=== PATIENT | female | born 1935 | race Caucasian/White ===

== ENCOUNTER 2018-11-27 12:05 | Inpatient (IN) | payer MEDICARE ==
--- NOTE | 2018-11-27 12:16 | Event Note ---
ED Screening Note Date of service: 11/27/18 Time: 12:11 ED Screening Note: This is a 83 y.o. F. that presents to the ER with dyspena for 4 hours. Patient daughter states she is very sleepy and tired since awaking this morning. PMH HTN, DM2, HLD, & CKD on dialysis Fri, , & Friday This initial assessment/diagnostic orders/clinical plan/treatment(s) is/are subject to change based on patients health status, clinical progression and re- assessment by fellow clinical providers in the ED. Further treatment and workup at subsequent clinical providers discretion. Patient/guardian urged not to elope from the ED as their condition may be serious if not clinically assessed and managed. Initial orders include: Labs, EKG, and CXR
--- NOTE | 2018-11-27 13:16 | XRay Report ---
CHEST 1 VIEW INDICATION / CLINICAL INFORMATION: SOB. COMPARISON: None available. FINDINGS: SUPPORT DEVICES: None. HEART / MEDIASTINUM: There is enlargement of the cardiac silhouette. Atherosclerotic calcifications a re noted in the aorta LUNGS / PLEURA: There is perihilar interstitial disease and basilar interstitial disease. Patchy airs pace opacities noted in both lung bases left greater than right. There is a small amount of pleural f luid bilaterally.. No pneumothorax. ADDITIONAL FINDINGS: No significant additional findings. IMPRESSION: 1. Bilateral interstitial and airspace opacities are noted. There are small bilateral pleural effusio ns left greater than right. The appearance is most suggestive of pulmonary edema and congestive hear t failure. Signer Name: Geoffrey Redmond MD Signed: 11/27/2018 1:11 PM Workstation Name: [id number]
[2018-11-27 13:53] LABS: Basophils # (Auto) 0.1 K/mm3 (0.0-0.1); Basophils % (Auto) 1.8 % (0.0-1.8); Eosinophils # (Auto) 0.2 K/mm3 (0.0-0.4); Eosinophils % (Auto) 4.7 % (0.0-4.3); Hematocrit 37.1 % (30.3-42.9); Hemoglobin 11.9 gm/dl (10.1-14.3); Lymphocytes % (Auto) 26.3 % (13.4-35.0); Mean Corpuscular HGB Conc 32 % (30-34); Mean Corpuscular Volume 95 fl (79-97); Monocytes # (Auto) 0.5 K/mm3 (0.0-0.8); Monocytes % (Auto) 13.5 % (0.0-7.3); Platelet Count 230 K/mm3 (140-440); Red Blood Count 3.92 M/mm3 (3.65-5.03); Red Cell Distribution Width 15.4 % (13.2-15.2)
[2018-11-27 14:20] LABS: Calcium 8.8 mg/dL (8.4-10.2)
[2018-11-27] MEDS ORDERED: FUROSEMIDE 40 MG/4 ML INJ IV ONE (14:33)
[2018-11-27] MEDS ORDERED: NITROGLYCERIN 2% OINT 1 GM TP ONE (14:33)
[2018-11-27] MEDS ORDERED: MORPHINE 2 MG/1 ML INJ IV ONE (14:34)
[2018-11-27] MEDS ORDERED: ONDANSETRON 4 MG/2 ML INJ IV ONE (14:34)
[2018-11-27 14:49] LABS: INR 1.11 (0.87-1.13)
[2018-11-27] MEDS ORDERED: HEPARIN 10,000 UNITS/10 ML VIAL IV ONE (15:03)
--- NOTE | 2018-11-27 15:23 | Emergency Department Report ---
ED Chest Pain HPI - General Chief Complaint: Dyspnea/Respdistress Stated Complaint: LUCIA Time Seen by Provider: 11/27/18 12:10 Source: family Mode of arrival: Wheelchair Limitations: Language Barrier - History of Present Illness Initial Comments: He 3-year-old female Macanese speaking. We have obtained a history in Macanese. She is not very talkative and tends to keep her eyes closed. However, she will respond to questions in her [place] language. She is not much missed spontaneous historian. However on questioning she apparently has had chest pain for at least 2 days. She states that it does radiate down her left arm. The chest pain is anterior in nature. She has had shortness of breath. 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 She does report a previous history of heart attack. She states she is treated here. However records do not indicate that she was here under this name as a patient with a cardiac event. MD Complaint: chest pain -: days(s) Onset: during rest Pain Location: substernal Pain Radiation: LUE Severity: moderate Quality: other (poorly characterized) Consistency: constant Improves With: nothing Worsens With: nothing re: dyspnea Other Symptoms: denies: cough, fever, syncope, rash, acid taste in mouth, leg swelling, palpitations, burping Treatments Prior to Arrival: other (unknown) Aspirin use within the Past 7 Days: (0) No (unknown) - Related Data Allergies Allergy/AdvReac Type Severity Reaction Status Date / Time No Known Allergies Allergy Unverified 11/27/18 12:08 Heart Score - HEART Score History: Highly suspicious EKG: Significant ST-depression Age: > 65 Risk factors: > 3 risk factors or hx of atherosclerotic disease Troponin: 1-3x normal limit HEART Score: 9 - Critical Actions Critical Actions: >7 pts:50-65% risk of adverse cardiac event. Early invasive measures ED Review of Systems ROS: Stated complaint: LUCIA Other details as noted in HPI Constitutional: denies: chills, fever Eyes: denies: eye pain, eye discharge, vision change ENT: denies: ear pain, throat pain Respiratory: shortness of breath. denies: cough, wheezing Cardiovascular: as per HPI, chest pain Endocrine: no symptoms reported Gastrointestinal: denies: abdominal pain, nausea, diarrhea Genitourinary: denies: urgency, dysuria, discharge Musculoskeletal: denies: back pain, joint swelling, arthralgia Skin: denies: rash, lesions Neurological: denies: headache, weakness, paresthesias Psychiatric: denies: anxiety, depression Hematological/Lymphatic: denies: easy bleeding, easy bruising ED Past Medical Hx - Past Medical History Previous Medical History?: Yes Hx Hypertension: Yes Additional medical history: hypothyroidism - Social History Smoking Status: Never Smoker Substance Use Type: None ED Physical Exam - General Limitations: Language Barrier General appearance: in no apparent distress, lethargic - Head Head exam: Present: atraumatic, normocephalic - Eye Eye exam: Present: normal appearance. Absent: scleral icterus - ENT ENT exam: Present: mucous membranes moist - Neck Neck exam: Present: normal inspection. Absent: tenderness, meningismus - Respiratory Respiratory exam: Present: normal lung sounds bilaterally. Absent: respiratory distress - Cardiovascular Cardiovascular Exam: Present: regular rate, normal rhythm. Absent: systolic murmur, diastolic murmur, rubs, gallop - GI/Abdominal GI/Abdominal exam: Present: soft, normal bowel sounds. Absent: distended, tenderness, guarding, rebound - Extremities Exam Extremities exam: Present: normal inspection - Back Exam Back exam: Present: normal inspection - Neurological Exam Neurological exam: Present: alert, oriented X3, CN II-XII intact. Absent: motor sensory deficit (neuro is grossly intact as testable) - Psychiatric Psychiatric exam: Present: depressed (perhaps), flat affect - Skin Skin exam: Present: warm, dry, intact, normal color. Absent: rash ED Course Vital Signs 11/27/18 12:11 Temperature 97.6 F Pulse Rate 78 Respiratory 16 Rate Blood Pressure 196/116 [Left] O2 Sat by Pulse 96 Oximetry - Reevaluation(s) Reevaluation #1: She given labetalol, nitrates, aspirin, a test dose of Lasix to see if she will diuresis at all. However creatinine is 3.7 and this is probably unlikely. She is placed on heparin protocol. The case is discussed with Dr. Goode who agreed to see the patient in consult. He does agree with heparin and admission to the hospitalist service. Patient is not a candidate for acute intervention. 11/27/18 15:24 Reevaluation #2: I find no prior creatinine found on review of our system. 11/27/18 15:26 Reevaluation #3: Suspected that the patient has her name is reversed because DO is a Macanese last name. Looking up the patient with the last name of Mehdi reveals recent admission: Hospitalization Condition: Fair Hospital course: Patient is a 83 year old vietnamise speaking female with hx of ESRD, HTN, ARTHRITIS, DM, presents to the ED with complaints of shortness of breath per family. No one is availbale at this time for information and patient is lethargic unable to use the translation line. Per Chart review, patient has been having worsening shortness of breath for about 3 hours prior to presentation, she is complaint with dialysis , diet and fluid intake with the last dialysis being on Friday and was full treatment. Prior visit notates that cardiology in the past had recommended conservative cardiac therapy following negative work up in the past. er most recent cardiac evaluation was done in January 2018. She underwent Persantine stress test that did not show any evidence of reversible ischemia. Normal LV systolic function. Ejection fraction 55% seen on echo. She has also in the past been treated for colitis and normal Esophagram by GI Family made the patient DNR in the ED. --Acute on Chronic Respiratory failure: secondary to Volume overload Patient received hemodialysis yesterday mild improvement of symptoms --ESRD on HD. Hemodialysis per schedule TTS General Clerk following --HTN; moderate control, continue current antihypertensives When necessary hydralazine --Nonspecific elevation of troponins; probably secondary to ESRD 2 non-ST elevation [place] --2DM ; Accu-Chek sliding scale coverage and ADA diet and insulin --H/O Hypothroidisim; continue Synthroid --Dyslipidemia; continue lipid-lowering medications --Severe malnutrition; BMI 17.6 Nutrition supplements/nutrition consult and supportive care --DO NOT RESUSCITATE status 11/27/18 15:36 Reevaluation #4: Discussed with care management specialist. Patient's last dialysis was yesterday. Dr. Blackwood is coming to see patient. 11/27/18 15:41 WAN score - Wan Score Age > 65: (1) Yes Aspirin use within the Past 7 Days: (0) No (uncertain) 3 or more CAD Risk Factors: (1) Yes (uncertain) 2 or more Angina events in past 24 hrs: (1) Yes Known CAD with more than 50% Stenosis: (1) Yes (likely) Elevated Cardiac Markers: (1) Yes ST Deviation Greater than 0.5mm: (1) Yes WAN Score: 6 ED Medical Decision Making - Lab Data Result diagrams: 11/27/18 12:47 11/27/18 12:53 Laboratory Results - last 24 hr 11/27/18 11/27/18 11/27/18 12:47 12:53 12:53 WBC 3.9 L RBC 3.92 Hgb 11.9 Hct 37.1 MCV 95 MCH 30 MCHC 32 RDW 15.4 H Plt Count 230 Lymph % (Auto) 26.3 [place] % (Auto) 13.5 H Eos % (Auto) 4.7 H Baso % (Auto) 1.8 Lymph # 1.0 L [place] # 0.5 Eos # 0.2 Baso # 0.1 Seg Neutrophils % 53.7 Seg Neutrophils # 2.1 PT INR APTT Sodium 140 Potassium 4.5 Chloride 94.4 L Carbon Dioxide 30 Anion Gap 20 BUN 48 H Creatinine 3.7 H Estimated GFR 12 BUN/Creatinine Ratio 13 Glucose 94 Calcium 8.8 Total Bilirubin 0.50 AST 16 ALT 6 L Alkaline Phosphatase 70 Troponin T 0.669 H* Total Protein 7.5 Albumin 4.0 Albumin/Globulin Ratio 1.1 11/27/18 14:34 WBC RBC Hgb Hct MCV MCH MCHC RDW Plt Count Lymph % (Auto) [place] % (Auto) Eos % (Auto) Baso % (Auto) Lymph # [place] # Eos # Baso # Seg Neutrophils % Seg Neutrophils # PT 14.0 INR 1.11 APTT 34.0 Sodium Potassium Chloride Carbon Dioxide Anion Gap BUN Creatinine Estimated GFR BUN/Creatinine Ratio Glucose Calcium Total Bilirubin AST ALT Alkaline Phosphatase Troponin T Total Protein Albumin Albumin/Globulin Ratio - EKG Data -: EKG Interpreted by [place] EKG shows normal: sinus rhythm Rate: normal - EKG Data Interpretation: other (EKG shows normal sinus rhythm. There are Q waves present in the Joy through V4. There is J-point elevation in these leads with biphasic T waves EKG is consistent with prior anterior infarct non-acute.) - Radiology Data Radiology results: report reviewed (cardiomegaly and pulmonary edema), image reviewed Critical Care Time: Yes Critical care time in (mins) excluding proc time.: 90 Critical care attestation.: If time is entered above; I have spent that time in minutes in the direct care of this critically ill patient, excluding procedure time. ED Disposition Clinical Impression: Acute coronary syndrome, ESRD (end stage renal disease) on dialysis Pulmonary edema Qualifiers: Chronicity: acute Qualified Code(s): J81.0 - Acute pulmonary edema Disposition: OP ADMIT IP TO THIS HOSP Is pt being admited?: Yes Does the pt Need Aspirin: Yes Condition: Stable Instructions: Pulmonary Edema (ED) Referrals: PRIMARY CAREMD [Primary Care Provider] - 3-5 Days Time of Disposition: 15:43
[2018-11-27] MEDS ORDERED: ASPIRIN 81 MG TAB CHEW PO ONE (15:43)
[2018-11-27] MEDS ORDERED: HEPARIN/ 0.45% NACL DRIP 25,000 UNIT/500 ML BAG IV SCH (16:00)
[2018-11-27 16:04] LABS: Chol/HDL Ratio 4.01 %; HDL Cholesterol 51 mg/dL (40-59); LDL Cholesterol,Direct 145 mg/dL (50-130)
[2018-11-27 16:10] LABS: Hematocrit 35.4 % (30.3-42.9); Hemoglobin 11.1 gm/dl (10.1-14.3)
[2018-11-27] MEDS ORDERED: SODIUM CHLORIDE 0.9% 100 ML IV PRN (16:33)
--- NOTE | 2018-11-27 16:33 | Consultation ---
History of Present Illness - Reason for Consult Consult date: 11/27/18 - History of Present Illness The patient is an 83 YO female who is well known to our service with history significant for DM type 2, Hypertension, ESRD on HD (TTS), Hypothyroidism and Anemia who presented to [facility] ED with complaints of feeling tired and sob since today morning. Patient only speaks Kinyarwanda and history was obtained from her daughter at the bedside. Per daughter patient has been c/o tiredness and sob si nce this morning. She was last dialyzed yesterday. Per daughter no h/o N, V, D, CP, diaphoresis, cough, hemoptysis, dyspnea, headache, fever or chills. CXR showed pulmonary edema. Nephrology was consulted for ESRD management. Medications and Allergies Allergies Allergy/AdvReac Type Severity Reaction Status Date / Time No Known Allergies Allergy Unverified 11/27/18 12:08 Active Meds: Active Medications Heparin Sodium/Sodium Chloride (Heparin/ 0.45% Nacl-25,000 Unit/500 Ml) 25,000 unit in 500 mls @ 16 mls/hr IV TITRATE HIRAM; Protocol Last Admin: 11/27/18 15:48 Dose: 800 units/hr, 16 mls/hr Documented by: Exam - Vital Signs Vital signs: Vital Signs Temp Pulse Resp BP Pulse Ox 97.6 F 78 16 196/116 96 11/27/18 12:11 11/27/18 12:11 11/27/18 12:11 11/27/18 12:11 11/27/18 12:11 Results - Lab Results 11/27/18 15:49 11/27/18 12:53 Most recent lab results Calcium 8.8 mg/dL (8.4-10.2) 11/27/18 12:53 Magnesium 2.70 mg/dL (1.7-2.3) H 11/27/18 14:34 Assessment and Plan 1. ESRD: Continue hemodialysis three times a week, TTS schedule. 2. Acute respiratory distress: Likely due to volume overload. Isolated UF today. 3. Anemia: Epogen as needed. 4. Elevated Troponin: Cards consulted. 5. Uncontrolled HTN: UF today. Monitor BP. 6. DM-2. 7. Hypothyroid. 8. Advanced age. Examination: General appearance: well-developed, well-nourished, appears stated age, no distress EENT: ATNC, MARY ANN Neck: supple Respiratory: bibasal rales noted Cardiology: regular, S1S2, no murmurs Gastrointestinal: normoactive bowel sounds, no tenderness, no distended Integumentary: no rash, warm and dry Neurologic: able to move extremities Musculoskeletal: edema Hemodialysis access: L arm AVF
[2018-11-27 19:40] LABS: Hepatitis B Surface Antigen Non-Reactive (Negative); Hepatitis C Virus Antibody Non-Reactive (NonReactive)
[2018-11-27] MEDS ORDERED: ONDANSETRON 4 MG/2 ML INJ IV PRN (21:08)
[2018-11-27] MEDS ORDERED: METOCLOPRAMIDE 10 MG/2 ML INJ IV PRN ×2 (21:08→21:14)
[2018-11-27] MEDS ORDERED: HYDROmorphone 1 MG/1 ML INJ IV PRN (21:08)
[2018-11-27] MEDS: hydrALAZINE 20 MG/1 ML INJ IV PRN (22:58)
[2018-11-28] MEDS: hydrALAZINE 20 MG/1 ML INJ IV PRN ×2 (05:39→22:45)
--- NOTE | 2018-11-28 06:59 | Event Note ---
Date: 11/27/18 See H/p in reports Chesty pain -/o OR ESRD
--- NOTE | 2018-11-28 08:27 | History and Physical Report ---
CHIEF COMPLAINT: 1. Increasing shortness of breath for 1 day. 2. Chest pain. HISTORY OF PRESENT ILLNESS: This is an 83-year-old female with history of end-stage renal disease, comes in for left-sided chest pain for 2 days. The patient is a very poor historian in spite of the language problem. Also, complains of shortness of breath. No diaphoresis. No palpitations. No exacerbating or precipitating factors. Chest pain is about 6 on a scale of 1-10. PAST MEDICAL HISTORY: Significant for hypertension, hypothyroidism, end-stage renal disease. SOCIAL HISTORY: Does not smoke. PAST SURGICAL HISTORY: None. FAMILY HISTORY: Hypertension. REVIEW OF SYSTEMS: Significant for chest pain and shortness of breath. Also, high blood pressure. Otherwise, review of systems negative. PHYSICAL EXAMINATION: GENERAL: Elderly female, cooperative during examination. VITAL SIGNS: Blood pressure is 196/115, temperature is 97.6, pulse is 78, respirations are 16, O2 sat is 96. HEENT: Unremarkable. Pupils equal and reactive. NECK: Supple, no lymphadenopathy, no thyromegaly. LUNGS: Clear to auscultation and percussion. Good air entry. CARDIOVASCULAR: S1, S2 heard. No gallop, no murmur, no rub. Apical impulse in left fifth intercostal space and midclavicular line. ABDOMEN: Soft and benign. No hepatosplenomegaly. No guarding, no rigidity. Hernial orifices are normal. EXTREMITIES: Good pedal pulses. No pedal edema. CENTRAL NERVOUS SYSTEM: Alert and oriented x 4, nonfocal exam. SKIN: Normal. LABORATORY DATA: Significant for white count of 3900, H and H is 11.1 and 35.4, platelet count is 184,000. Sodium is 140, potassium is 4.5, BUN and creatinine is 48 and 3.7. Troponin is 0.669 and 0.666. BNP is more than 35,000. EKG shows T-wave inversions in V1, V2, V3 and V4 also, V5. Heart rate of 73 per minute. Chest x-ray shows pulmonary venous congestion. Bilateral airspace opacities most suggestive of pulmonary edema and congestive heart failure. ASSESSMENT AND PLAN: 1. Non-ST elevation myocardial. The patient initiated on IV heparin drip and Cardiology consult. Lexiscan was not ordered. From the viewpoint, the patient may be taken for cardiac catheterization. IV heparin to continue. 2. Hypertensive emergency. Control the blood pressure. Hydralazine 10 mg q. 3 hours p.r.n. 3. End-stage renal disease. Continue dialysis. Acute pulmonary edema, increased ultrafiltration. BNP is more than 35,000. Echocardiogram ordered. 4. Deep venous thrombosis prophylaxis. The patient is already on IV heparin. JOB# [id number] ISH/ISRAEL GARCIA
[2018-11-28 08:51] LABS: Albumin 3.8 g/dL (3.9-5); Calcium 8.5 mg/dL (8.4-10.2)
[2018-11-28 08:55] LABS: Basophils # (Auto) 0.1 K/mm3 (0.0-0.1); Eosinophils # (Auto) 0.1 K/mm3 (0.0-0.4); Eosinophils % (Auto) 3.5 % (0.0-4.3); Hematocrit 33.1 % (30.3-42.9); Hemoglobin 10.8 gm/dl (10.1-14.3); Lymphocytes # (Auto) 1.1 K/mm3 (1.2-5.4); Lymphocytes % (Auto) 25.8 % (13.4-35.0); Mean Corpuscular HGB Conc 33 % (30-34); Mean Corpuscular Volume 95 fl (79-97); Monocytes # (Auto) 0.5 K/mm3 (0.0-0.8); Monocytes % (Auto) 11.1 % (0.0-7.3); Platelet Count 208 K/mm3 (140-440); Red Blood Count 3.49 M/mm3 (3.65-5.03); Red Cell Distribution Width 15.6 % (13.2-15.2)
--- NOTE | 2018-11-28 09:12 | Progress Note ---
Assessment and Plan Assessment and plan: Ms. William Kang (name is misspelled on this admission as Ms. Wang, in which her last name is listed as her first name) is a 83 yo Vietanemes speaking woman with a history of type 2 DM, hypertension, dyslipidemia and ESRD on HD TTS who presented to [facility] ED with sob and chest pains. Her troponin level is usually increased but not this high at 0.666 (once again you have to search Do, Soi NOT Soi, Do). * pCXR Impression: Bilateral interstitial and airspace opacities are noted, there are small bilateral pleural effusions left greater than right. 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 Dyslipidemia: statin History Interval history: Patient was seen and examined. Follow-up on current diagnosis NSTEMI. No overnight events reported to me. Patient denies any nausea/vomiting or severe headaches. Imaging, nursing note, chart, labs and old chart reviewed. Discussed with patient. Hospitalist Physical - Physical exam Narrative exam: Gen: WDWN, NAD, Awake, Alert, Orientated HEENT: NCAT, EOMI, PERRL, OP Clear Neck: supple, no adenopathy, no thyromegaly, no JVD CVS/Heart: RRR, normal S1S2, pulses present bilaterally Chest/Lungs: diminised with crackles bilaterally bases, Symmetrical chest expansion, good air entry bilaterally GI/Abdomen: soft, NTND, good bowel sounds, no guarding or rebound /Bladder: no suprapubic tenderness, no CVA or paraspinal tenderness Extermity/Skin: no c/c/e, no obvious rash MSK: FROM x 4 Neuro: CN 2-12 grossly intact, no new focal deficits Psych: calm - Constitutional Vitals: Temp Pulse Resp BP Pulse Ox 98.2 F 72 18 176/74 91 11/28/18 07:25 11/28/18 07:25 11/28/18 07:25 11/28/18 07:25 11/28/18 07:25 Results - Labs CBC & Chem 7: 11/28/18 07:59 11/28/18 07:59 Labs: Laboratory Last Values WBC 4.3 K/mm3 (4.5-11.0) L 11/28/18 07:59 RBC 3.49 M/mm3 (3.65-5.03) L 11/28/18 07:59 Hgb 10.8 gm/dl (10.1-14.3) 11/28/18 07:59 Hct 33.1 % (30.3-42.9) 11/28/18 07:59 MCV 95 fl (79-97) 11/28/18 07:59 MCH 31 pg (28-32) 11/28/18 07:59 MCHC 33 % (30-34) 11/28/18 07:59 RDW 15.6 % (13.2-15.2) H 11/28/18 07:59 Plt Count 208 K/mm3 (140-440) 11/28/18 07:59 Lymph % (Auto) 25.8 % (13.4-35.0) 11/28/18 07:59 [place] % (Auto) 11.1 % (0.0-7.3) H 11/28/18 07:59 Eos % (Auto) 3.5 % (0.0-4.3) 11/28/18 07:59 Baso % (Auto) Lab Analyst 11/28/18 07:59 Lymph # 1.1 K/mm3 (1.2-5.4) L 11/28/18 07:59 [place] # 0.5 K/mm3 (0.0-0.8) 11/28/18 07:59 Eos # 0.1 K/mm3 (0.0-0.4) 11/28/18 07:59 Baso # 0.1 K/mm3 (0.0-0.1) 11/28/18 07:59 Seg Neutrophils % 57.0 % (40.0-70.0) 11/28/18 07:59 Seg Neutrophils # 2.4 K/mm3 (1.8-7.7) 11/28/18 07:59 PT 14.0 Sec. (12.2-14.9) 11/27/18 14:34 INR 1.11 (0.87-1.13) 11/27/18 14:34 APTT 34.0 Sec. (24.2-36.6) 11/27/18 14:34 Heparin Anti-Xa Level 0.13 U.I./ml (0.3-0.7) L 11/28/18 07:59 Sodium 138 mmol/L (137-145) 11/28/18 07:59 Potassium 5.5 mmol/L (3.6-5.0) H D 11/28/18 07:59 Chloride 92.6 mmol/L (98-107) L 11/28/18 07:59 Carbon Dioxide 27 mmol/L (22-30) 11/28/18 07:59 24 mmol/L 11/28/18 07:59 BUN 57 mg/dL (7-17) H 11/28/18 07:59 4.6 mg/dL (0.7-1.2) H 11/28/18 07:59 Estimated GFR 9 ml/min 11/28/18 07:59 12 % 11/28/18 07:59 Glucose 98 mg/dL (65-100) 11/28/18 07:59 < 4.2 % (4-6) 11/27/18 21:42 Calcium 8.5 mg/dL (8.4-10.2) 11/28/18 07:59 Magnesium 2.70 mg/dL (1.7-2.3) H 11/27/18 14:34 0.30 mg/dL (0.1-1.2) 11/28/18 07:59 AST 16 units/L (5-40) 11/28/18 07:59 ALT 7 units/L (7-56) 11/28/18 07:59 61 units/L (35-129) 11/28/18 07:59 0.587 ng/mL (0.00-0.029) H* 11/28/18 07:59 NT-Pro-B Natriuret Pep > 14387 pg/mL (0-900) H 11/27/18 12:53 7.3 g/dL (6.3-8.2) 11/28/18 07:59 3.8 g/dL (3.9-5) L 11/28/18 07:59 1.1 % 11/28/18 07:59 Triglycerides 123 mg/dL (2-149) 11/27/18 12:53 Cholesterol 205 mg/dL (50-199) H 11/27/18 12:53 145 mg/dL (50-130) H 11/27/18 12:53 51 mg/dL (40-59) 11/27/18 12:53 4.01 % 11/27/18 12:53 Hepatitis A IgM Ab Non-reactive (NonReactive) 11/27/18 18:50 Hep Bs Antigen Non-reactive (Negative) 11/27/18 18:50 Hep B Core IgM Ab Non-reactive (NonReactive) 11/27/18 18:50 Non-reactive (NonReactive) 11/27/18 18:50 Active Medications - Current Medications Current Medications: Generic Name Dose Route Start Last Admin Trade Name Freq PRN Reason Stop Dose Admin Acetaminophen 650 mg 11/27/18 21:08 Tylenol PO Q4H PRN Pain MILD(1-3)/Fever >100.5/RODRIGES Carvedilol 12.5 mg 11/28/18 10:00 Coreg PO BID [facility] Hydralazine HCl 10 mg 11/27/18 22:32 11/28/18 05:39 Apresoline IV 10 mg Q4HR PRN Administration Blood Pressure Hydromorphone HCl 0.5 mg 11/27/18 21:08 Dilaudid IV Q3H PRN Pain , Severe (7-10) Heparin Sodium/Sodium Chloride 25,000 unit in 500 mls @ 16 mls/hr 11/27/18 16:00 11/28/18 08:40 Heparin/ 0.45% Nacl-25,000 Unit/500 Ml IV 750 units/hr TITRATE HIRAM 15 mls/hr Titration Protocol 800 UNITS/HR Sodium Chloride 100 mls @ 999 mls/hr 11/27/18 16:33 Nacl 0.9% IV JULIANE PRN Hypotension Losartan Potassium 100 mg 11/28/18 10:00 Cozaar PO QDAY HIARM Metoclopramide HCl 5 mg 11/27/18 21:14 Reglan IV Q6H PRN Nausea And Vomiting Ondansetron HCl 4 mg 11/27/18 21:08 Zofran IV Q8H PRN Nausea And Vomiting Sodium Chloride 10 ml 11/27/18 22:00 11/27/18 22:58 Sodium Chloride Flush Syringe 10 Ml IV 10 ml BID HIRAM Administration Sodium Chloride 10 ml 11/27/18 21:08 Sodium Chloride Flush Syringe 10 Ml IV PRN PRN LINE FLUSH
[2018-11-28] MEDS: LOSARTAN 50 MG TAB PO SCH (09:46)
[2018-11-28] MEDS: carvediloL 12.5 MG TAB PO SCH ×2 (09:46→22:45)
[2018-11-28] MEDS ORDERED: SODIUM CHLORIDE 0.9% 100 ML IV PRN (10:02)
--- NOTE | 2018-11-28 10:04 | Progress Note ---
Assessment and Plan 1. ESRD: Continue hemodialysis three times a week, TTS schedule. 2. Acute respiratory distress: Likely due to volume overload. UF with HD today. 3. Anemia: Epogen as needed. 4. Elevated Troponin: Cards consulted. 5. Uncontrolled HTN: UF today. Monitor BP. 6. DM-2. 7. Hypothyroid. 8. Advanced age. Examination: General appearance: well-developed, well-nourished, appears stated age, no distress EENT: ATNC, MARY ANN Neck: supple Respiratory: bibasal rales noted Cardiology: regular, S1S2, no murmurs Gastrointestinal: normoactive bowel sounds, no tenderness, no distended Integumentary: no rash, warm and dry Neurologic: able to move extremities Musculoskeletal: edema Hemodialysis access: L arm AVF Subjective Date of service: 11/28/18 Interval history: Patient was seen and examined at the bedside. Per daughter patient has sob and cp. Objective - Vital Signs Vital signs: Vital Signs - 12hr 11/27/18 11/27/18 11/28/18 22:09 22:58 00:00 Temperature Pulse Rate 890 H 72 Respiratory Rate Blood Pressure 171/65 Blood Pressure [Left] O2 Sat by Pulse 93 Oximetry 11/28/18 11/28/18 11/28/18 00:01 00:09 04:49 Temperature 98.0 F 98.6 F 98.0 F Pulse Rate 69 68 71 Respiratory 18 18 18 Rate Blood Pressure 162/70 180/76 Blood Pressure 169/58 [Left] O2 Sat by Pulse 90 94 92 Oximetry 11/28/18 11/28/18 11/28/18 05:39 07:25 09:46 Temperature 98.2 F Pulse Rate 72 72 Respiratory 18 Rate Blood Pressure 180/76 176/74 Blood Pressure 176/74 [Left] O2 Sat by Pulse 91 Oximetry - Lab 11/28/18 07:59 11/28/18 07:59 Most recent lab results Calcium 8.5 mg/dL (8.4-10.2) 11/28/18 07:59 Magnesium 2.70 mg/dL (1.7-2.3) H 11/27/18 14:34 Medications & Allergies - Medications Allergies/Adverse Reactions: Allergies No Known Allergies Allergy (Unverified 11/27/18 12:08) Active Medications: Generic Name Dose Route Start Last Admin Trade Name Freq PRN Reason Stop Dose Admin Acetaminophen 650 mg 11/27/18 21:08 Tylenol PO Q4H PRN Pain MILD(1-3)/Fever >100.5/RODRIGES Carvedilol 12.5 mg 11/28/18 10:00 11/28/18 09:46 Coreg PO 12.5 mg BID HIRAM Administration Hydralazine HCl 10 mg 11/27/18 22:32 11/28/18 05:39 Apresoline IV 10 mg Q4HR PRN Administration Blood Pressure Hydromorphone HCl 0.5 mg 11/27/18 21:08 Dilaudid IV Q3H PRN Pain , Severe (7-10) Heparin Sodium/Sodium Chloride 25,000 unit in 500 mls @ 16 mls/hr 11/27/18 16:00 11/28/18 08:40 Heparin/ 0.45% Nacl-25,000 Unit/500 Ml IV 750 units/hr TITRATE HIRAM 15 mls/hr Titration Protocol 800 UNITS/HR Sodium Chloride 100 mls @ 999 mls/hr 11/27/18 16:33 Nacl 0.9% IV JULIANE PRN Hypotension Losartan Potassium 100 mg 11/28/18 10:00 11/28/18 09:46 Cozaar PO 100 mg QDAY HIRAM Administration Metoclopramide HCl 5 mg 11/27/18 21:14 Reglan IV Q6H PRN Nausea And Vomiting Ondansetron HCl 4 mg 11/27/18 21:08 Zofran IV Q8H PRN Nausea And Vomiting Sodium Chloride 10 ml 11/27/18 22:00 11/28/18 09:47 Sodium Chloride Flush Syringe 10 Ml IV 10 ml BID HIRAM Administration Sodium Chloride 10 ml 11/27/18 21:08 Sodium Chloride Flush Syringe 10 Ml IV PRN PRN LINE FLUSH
--- NOTE | 2018-11-28 12:07 | Consultation ---
History of Present Illness Consult date: 11/28/18 Consult reason: congestive heart failure History of present illness: This is an 83-year-old woman who was hospitalized here just 2 weeks ago at that time with acute pulmonary edema. On this presentation, her old records are not immediately visible because her last and first names have been reversed. Her actual last name is . She has end-stage renal disease on hemodialysis, chronic hypertension, and chronic diabetes. On November 09, less than 2 weeks ago, she presented here with acute pulmonary edema. At that time an echocardiogram showed left ventricular ejection fraction of 30-35%. After the heart failure fluid overload resolved, a myocardial perfusion study reported no significant ischemia, she was recommended for medical therapy. The patient is readmitted with shortness of breath and again the chest x-ray is consistent with acute pulmonary edema. The patient's family reports that she does dialysis on Tuesdays, and Saturdays and has not missed any sessions. Her ECG on this presentation is a sinus rhythm with poor R-wave progression and biphasic T waves in the anterior leads. These T-wave abnormalities were present on her previous ECG 2 weeks ago, only slightly more prominent on the current tracing. After additional dialysis, the patient is comfortable, breathing better, no acute distress. She appears cachectic and very frail, older than her stated age of 83. Past History Past Medical History: heart failure, hypertension Medications and Allergies Allergies Allergy/AdvReac Type Severity Reaction Status Date / Time No Known Allergies Allergy Unverified 11/27/18 12:08 Active Meds: Active Medications Acetaminophen (Tylenol) 650 mg PO Q4H PRN PRN Reason: Pain MILD(1-3)/Fever >100.5/ORDRIGES Carvedilol (Coreg) 12.5 mg PO BID HIRAM Last Admin: 11/28/18 09:46 Dose: 12.5 mg Documented by: Hydralazine HCl (Apresoline) 10 mg IV Q4HR PRN PRN Reason: Blood Pressure Last Admin: 11/28/18 05:39 Dose: 10 mg Documented by: Hydromorphone HCl (Dilaudid) 0.5 mg IV Q3H PRN PRN Reason: Pain , Severe (7-10) Heparin Sodium/Sodium Chloride (Heparin/ 0.45% Nacl-25,000 Unit/500 Ml) 25,000 unit in 500 mls @ 16 mls/hr IV TITRATE HIRAM; Protocol Last Titration: 11/28/18 08:40 Dose: 750 units/hr, 15 mls/hr Documented by: Sodium Chloride (Nacl 0.9%) 100 mls @ 999 mls/hr IV JULIANE PRN PRN Reason: Hypotension Losartan Potassium (Cozaar) 100 mg PO QDAY [facility] Last Admin: 11/28/18 09:46 Dose: 100 mg Documented by: Metoclopramide HCl (Reglan) 5 mg IV Q6H PRN PRN Reason: Nausea And Vomiting Ondansetron HCl (Zofran) 4 mg IV Q8H PRN PRN Reason: Nausea And Vomiting Sodium Chloride (Sodium Chloride Flush Syringe 10 Ml) 10 ml IV BID [facility] Last Admin: 11/28/18 09:47 Dose: 10 ml Documented by: Sodium Chloride (Sodium Chloride Flush Syringe 10 Ml) 10 ml IV PRN PRN PRN Reason: LINE FLUSH Review of Systems Cardiovascular: chest pain, shortness of breath, no orthopnea, no palpitations, no rapid/irregular heart beat, no edema, no syncope, no lightheadedness Physical Examination Vital Signs Temp Pulse Resp BP Pulse Ox 97.6 F 78 16 196/116 96 11/27/18 12:11 11/27/18 12:11 11/27/18 12:11 11/27/18 12:11 11/27/18 12:11 General appearance: no acute distress, cachectic HEENT: Positive: PERRL Neck: Positive: neck supple Cardiac: Positive: Reg Rate and Rhythm Lungs: Positive: Decreased Breath Sounds Neuro: Positive: Grossly Intact Abdomen: Positive: Soft Female genitourinary: deferred Skin: Positive: Clear Extremities: Absent: edema Results 11/28/18 07:59 11/28/18 07:59 Cardiac Enzymes 11/27/18 11/28/18 Range/Units 12:53 07:59 AST 16 16 (5-40) units/L Coagulation 11/27/18 Range/Units 14:34 PT 14.0 (12.2-14.9) Sec. INR 1.11 (0.87-1.13) APTT 34.0 (24.2-36.6) Sec. Lipids 11/27/18 Range/Units 12:53 Triglycerides 123 (2-149) mg/dL Cholesterol 205 H (50-199) mg/dL HDL Cholesterol 51 (40-59) mg/dL Cholesterol/HDL Ratio 4.01 % CBC 11/27/18 11/27/18 11/28/18 Range/Units 12:47 15:49 07:59 WBC 3.9 L 4.3 L (4.5-11.0) K/mm3 RBC 3.92 3.49 L (3.65-5.03) M/mm3 Hgb 11.9 11.1 10.8 (10.1-14.3) gm/dl Hct 37.1 35.4 33.1 (30.3-42.9) % Plt Count 230 185 208 (140-440) K/mm3 Lymph # 1.0 L 1.1 L (1.2-5.4) K/mm3 [place] # 0.5 0.5 (0.0-0.8) K/mm3 Eos # 0.2 0.1 (0.0-0.4) K/mm3 Baso # 0.1 0.1 (0.0-0.1) K/mm3 Comprehensive Metabolic Panel 11/27/18 11/28/18 Range/Units 12:53 07:59 Sodium 140 138 (137-145) mmol/L Potassium 4.5 5.5 H D (3.6-5.0) mmol/L Chloride 94.4 L 92.6 L (98-107) mmol/L Carbon Dioxide 30 27 (22-30) mmol/L BUN 48 H 57 H (7-17) mg/dL Creatinine 3.7 H 4.6 H (0.7-1.2) mg/dL Glucose 94 98 (65-100) mg/dL Calcium 8.8 8.5 (8.4-10.2) mg/dL AST 16 16 (5-40) units/L ALT 6 L 7 (7-56) units/L Alkaline Phosphatase 70 61 (35-129) units/L Total Protein 7.5 7.3 (6.3-8.2) g/dL Albumin 4.0 3.8 L (3.9-5) g/dL EKG interpretations - Telemetry EKG Rhythm: Sinus Rhythm Assessment and Plan - Patient Problems (1) Pulmonary edema Current Visit: Yes Status: Acute Qualifiers: Chronicity: acute Qualified Code(s): J81.0 - Acute pulmonary edema Plan to address problem: The patient presents with recurrent acute pulmonary edema. Current presentation, the systolic blood pressure was markedly elevated at 211. Possible etiologies include uncontrolled hypertension, underlying left ventricular systolic dysfunction, and possible coronary ischemia. I have discussed these findings with the patient's family, we will aggressively treat the blood pressure, and consider invasive coronary angiography if the patient and the family agree to this strategy.
[2018-11-28] MEDS ORDERED: GELATIN SPONGE,ABSORBABLE 1 GM POWDER MM ONE (14:00)
[2018-11-28] MEDS: NIFEdipine XL 60 MG TAB PO SCH (16:15)
[2018-11-28] MEDS: ACETAMINOPHEN 325 MG TAB PO PRN (17:53)
[2018-11-29 06:08] LABS: Hemoglobin 9.1 gm/dl (10.1-14.3)
--- NOTE | 2018-11-29 09:52 | Progress Note ---
Assessment and Plan Assessment and plan: Ms. William Kang (name is misspelled on this admission as Ms. Wang, in which her last name is listed as her first name) is a 83 yo Vietanem[place] speaking woman with a history of type 2 DM, hypertension, dyslipidemia and ESRD on HD TTS who presented to [facility] ED with sob and chest pains. Her troponin level is usually increased but not this high at 0.666 (once again you have to search Do, Soi NOT Soi, Do). Family approached me to tell me that patient is DNR. * pCXR Impression: Bilateral interstitial and airspace opacities are noted, there are small bilateral pleural effusions left greater than right. 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 Dyslipidemia: statin DNR, paperwork signed History Interval history: Patient was seen and examined. Follow-up on current diagnosis NSTEMI. No overnight events reported to me. Patient denies any nausea/vomiting or severe headaches. Imaging, nursing note, chart, labs and old chart reviewed. Discussed with patient. Hospitalist Physical - Physical exam Narrative exam: Gen: thin frial, weight is wrong in the system, pt maybe 97.9lbs not 97.9 kg, NAD, Awake, Alert, Orientated HEENT: NCAT, EOMI, PERRL, OP Clear Neck: supple, no adenopathy, no thyromegaly, no JVD CVS/Heart: RRR, normal S1S2, pulses present bilaterally Chest/Lungs: diminised with crackles bilaterally bases, Symmetrical chest expansion, good air entry bilaterally GI/Abdomen: soft, NTND, good bowel sounds, no guarding or rebound /Bladder: no suprapubic tenderness, no CVA or paraspinal tenderness Extermity/Skin: no c/c/e, no obvious rash MSK: FROM x 4 Neuro: CN 2-12 grossly intact, no new focal deficits Psych: calm - Constitutional Vitals: Temp Pulse Resp BP Pulse Ox 98.0 F 63 18 127/35 93 11/29/18 07:17 11/29/18 07:17 11/29/18 07:17 11/29/18 07:17 11/29/18 07:17 General appearance: Present: no acute distress, cachectic Results - Labs CBC & Chem 7: 11/29/18 05:28 11/28/18 07:59 Labs: Laboratory Last Values WBC 4.3 K/mm3 (4.5-11.0) L 11/28/18 07:59 RBC 3.49 M/mm3 (3.65-5.03) L 11/28/18 07:59 Hgb 9.1 gm/dl (10.1-14.3) L 11/29/18 05:28 Hct 27.0 % (30.3-42.9) L D 11/29/18 05:28 MCV 95 fl (79-97) 11/28/18 07:59 MCH 31 pg (28-32) 11/28/18 07:59 MCHC 33 % (30-34) 11/28/18 07:59 RDW 15.6 % (13.2-15.2) H 11/28/18 07:59 Plt Count 191 K/mm3 (140-440) 11/29/18 05:28 Lymph % (Auto) 25.8 % (13.4-35.0) 11/28/18 07:59 Barren % (Auto) 11.1 % (0.0-7.3) H 11/28/18 07:59 Eos % (Auto) 3.5 % (0.0-4.3) 11/28/18 07:59 Baso % (Auto) [employer] 11/28/18 07:59 Lymph # 1.1 K/mm3 (1.2-5.4) L 11/28/18 07:59 Barren # 0.5 K/mm3 (0.0-0.8) 11/28/18 07:59 Eos # 0.1 K/mm3 (0.0-0.4) 11/28/18 07:59 Baso # 0.1 K/mm3 (0.0-0.1) 11/28/18 07:59 Seg Neutrophils % 57.0 % (40.0-70.0) 11/28/18 07:59 Seg Neutrophils # 2.4 K/mm3 (1.8-7.7) 11/28/18 07:59 PT 14.0 Sec. (12.2-14.9) 11/27/18 14:34 INR 1.11 (0.87-1.13) 11/27/18 14:34 APTT 34.0 Sec. (24.2-36.6) 11/27/18 14:34 Heparin Anti-Xa Level < 0.10 U.I./ml (0.3-0.7) L 11/29/18 01:55 Sodium 138 mmol/L (137-145) 11/28/18 07:59 Potassium 5.5 mmol/L (3.6-5.0) H D 11/28/18 07:59 Chloride 92.6 mmol/L (98-107) L 11/28/18 07:59 Carbon Dioxide 27 mmol/L (22-30) 11/28/18 07:59 24 mmol/L 11/28/18 07:59 BUN 57 mg/dL (7-17) H 11/28/18 07:59 4.6 mg/dL (0.7-1.2) H 11/28/18 07:59 Estimated GFR 9 ml/min 11/28/18 07:59 12 % 11/28/18 07:59 Glucose 98 mg/dL (65-100) 11/28/18 07:59 POC Glucose 109 (70-105) H 11/28/18 22:48 < 4.2 % (4-6) 11/27/18 21:42 Calcium 8.5 mg/dL (8.4-10.2) 11/28/18 07:59 Magnesium 2.70 mg/dL (1.7-2.3) H 11/27/18 14:34 0.30 mg/dL (0.1-1.2) 11/28/18 07:59 AST 16 units/L (5-40) 11/28/18 07:59 ALT 7 units/L (7-56) 11/28/18 07:59 61 units/L (35-129) 11/28/18 07:59 0.587 ng/mL (0.00-0.029) H* 11/28/18 07:59 NT-Pro-B Natriuret Pep > 39594 pg/mL (0-900) H 11/27/18 12:53 7.3 g/dL (6.3-8.2) 11/28/18 07:59 3.8 g/dL (3.9-5) L 11/28/18 07:59 1.1 % 11/28/18 07:59 Triglycerides 123 mg/dL (2-149) 11/27/18 12:53 Cholesterol 205 mg/dL (50-199) H 11/27/18 12:53 145 mg/dL (50-130) H 11/27/18 12:53 51 mg/dL (40-59) 11/27/18 12:53 4.01 % 11/27/18 12:53 Hepatitis A IgM Ab Non-reactive (NonReactive) 11/27/18 18:50 Hep Bs Antigen Non-reactive (Negative) 11/27/18 18:50 Hep B Core IgM Ab Non-reactive (NonReactive) 11/27/18 18:50 Non-reactive (NonReactive) 11/27/18 18:50 Active Medications - Current Medications Current Medications: Generic Name Dose Route Start Last Admin Trade Name Freq PRN Reason Stop Dose Admin Acetaminophen 650 mg 11/27/18 21:08 11/28/18 17:53 Tylenol PO 650 mg Q4H PRN Administration Pain MILD(1-3)/Fever >100.5/RODRIGES Carvedilol 12.5 mg 11/28/18 10:00 11/28/18 22:45 Coreg PO 12.5 mg BID HIRAM Administration Heparin Sodium (Porcine) 5,000 unit 11/29/18 10:00 Heparin SUB-Q Q12HR [facility] Hydralazine HCl 10 mg 11/27/18 22:32 11/28/18 22:45 Apresoline IV 10 mg Q4HR PRN Administration Blood Pressure Hydromorphone HCl 0.5 mg 11/27/18 21:08 Dilaudid IV Q3H PRN Pain , Severe (7-10) Sodium Chloride 100 mls @ 999 mls/hr 11/28/18 10:02 Nacl 0.9% IV JULIANE PRN Hypotension Losartan Potassium 100 mg 11/28/18 10:00 11/28/18 09:46 Cozaar PO 100 mg QDAY HIRAM Administration Metoclopramide HCl 5 mg 11/27/18 21:14 Reglan IV Q6H PRN Nausea And Vomiting Nifedipine 60 mg 11/28/18 13:00 11/28/18 16:15 Procardia Xl PO 60 mg QDAY HIRAM Administration Ondansetron HCl 4 mg 11/27/18 21:08 Zofran IV Q8H PRN Nausea And Vomiting Sodium Chloride 10 ml 11/27/18 22:00 11/28/18 22:49 Sodium Chloride Flush Syringe 10 Ml IV Not Given BID HIRAM Sodium Chloride 10 ml 11/27/18 21:08 Sodium Chloride Flush Syringe 10 Ml IV PRN PRN LINE FLUSH
[2018-11-29] MEDS: HEPARIN 5,000 UNIT/1 ML VIAL SUB-Q SCH ×2 (10:21→21:14)
[2018-11-29] MEDS: LOSARTAN 50 MG TAB PO SCH (10:21)
[2018-11-29] MEDS: NIFEdipine XL 60 MG TAB PO SCH (10:24)
[2018-11-29] MEDS: carvediloL 12.5 MG TAB PO SCH ×2 (10:24→21:13)
[2018-11-29] MEDS: ACETAMINOPHEN 325 MG TAB PO PRN (10:25)
--- NOTE | 2018-11-29 17:07 | Progress Note ---
Assessment and Plan - Patient Problems (1) Pulmonary edema Current Visit: Yes Status: Acute Qualifiers: Chronicity: acute Qualified Code(s): J81.0 - Acute pulmonary edema Plan to address problem: The patient presents with recurrent acute pulmonary edema. Current presentation, the systolic blood pressure was markedly elevated at 211. Possible etiologies include uncontrolled hypertension, underlying left ventricular systolic dysfunction, and possible coronary ischemia. I have discussed these findings with the patient's family, we will aggressively treat the blood pressure, and consider invasive coronary angiography if the patient and the family agree to this strategy. Subjective Date of service: 11/29/18 Interval history: Patient is comfortable, no acute distress. No new cardiac complaints. Objective Vital Signs Temp Pulse Resp BP Pulse Ox 11/29/18 11:47 98.2 F 18 132/49 11/29/18 10:24 63 127/35 11/29/18 10:21 63 127/35 11/29/18 07:17 98.0 F 63 18 127/35 93 11/29/18 05:13 98.1 F 66 16 163/60 95 11/29/18 02:00 68 11/29/18 00:45 98.0 F 66 16 158/57 94 11/28/18 23:30 20 11/28/18 22:38 98.4 F 72 16 197/74 96 11/28/18 22:37 98.2 F 71 18 189/86 11/28/18 22:00 70 190/91 11/28/18 21:45 75 164/80 11/28/18 21:30 73 154/82 11/28/18 21:15 71 169/82 11/28/18 21:00 70 160/82 11/28/18 20:45 73 173/86 11/28/18 20:30 70 178/88 11/28/18 20:15 72 170/88 11/28/18 20:00 68 183/87 11/28/18 19:45 69 186/80 11/28/18 19:30 65 189/80 11/28/18 19:20 63 182/84 11/28/18 19:15 98.2 F 66 18 187/77 11/28/18 18:42 84 11/28/18 17:36 97.6 F 18 211/73 - Physical Examination General: No Apparent Distress HEENT: Positive: PERRL Neck: Positive: neck supple Cardiac: Positive: Irregularly Regular Lungs: Positive: Decreased Breath Sounds Neuro: Positive: Grossly Intact Abdomen: Positive: Soft Skin: Positive: Clear Extremities: Absent: edema - Labs and Meds CBC 11/29/18 Range/Units 05:28 Hgb 9.1 L (10.1-14.3) gm/dl Hct 27.0 L D (30.3-42.9) % Plt Count 191 (140-440) K/mm3
--- NOTE | 2018-11-30 08:16 | Progress Note ---
Assessment and Plan Assessment and plan: Ms. William Kagn (name is misspelled on this admission, last and first name are reversed) is a 83 yo Pashto speaking woman with a history of hypertension, dyslipidemia and ESRD on HD TTS who presented to [facility] ED with sob and chest pains. Her troponin level is usually increased but not this high at 0.666 (once again you have to search Do, Soi NOT Soi, Do). Family approached me to tell me that patient is DNR. * pCXR Impression: Bilateral interstitial and airspace opacities are noted, there are small bilateral pleural effusions left greater than right. 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 Dyslipidemia: statin DNR, paperwork signed Disposition: continue inpatient care, Cardiology to decide about LHC and ECHO pending History Interval history: Patient was seen and examined. Follow-up on current diagnosis NSTEMI. No overnight events reported to me. Patient denies any nausea/vomiting or severe headaches. Imaging, nursing note, chart, labs and old chart reviewed. Discussed with patient via Flosser/daughter and grand-daughter over the phone Hospitalist Physical - Physical exam Narrative exam: Gen: thin frial, weight is wrong in the system, pt maybe 97.9lbs not 97.9 kg, NAD, Awake, Alert, Orientated HEENT: NCAT, EOMI, PERRL, OP Clear Neck: supple, no adenopathy, no thyromegaly, no JVD CVS/Heart: RRR, normal S1S2, pulses present bilaterally Chest/Lungs: diminised with crackles bilaterally bases, Symmetrical chest expansion, good air entry bilaterally GI/Abdomen: soft, NTND, good bowel sounds, no guarding or rebound /Bladder: no suprapubic tenderness, no CVA or paraspinal tenderness Extermity/Skin: no c/c/e, no obvious rash MSK: FROM x 4 Neuro: CN 2-12 grossly intact, no new focal deficits Psych: calm - Constitutional Vitals: Temp Pulse Resp BP Pulse Ox 98.3 F 61 16 137/59 98 11/30/18 03:51 11/30/18 03:51 11/30/18 03:51 11/30/18 03:51 11/30/18 03:51 General appearance: Present: no acute distress, cachectic Results - Labs CBC & Chem 7: 11/29/18 05:28 11/28/18 07:59 Labs: Laboratory Last Values WBC 4.3 K/mm3 (4.5-11.0) L 11/28/18 07:59 RBC 3.49 M/mm3 (3.65-5.03) L 11/28/18 07:59 Hgb 9.1 gm/dl (10.1-14.3) L 11/29/18 05:28 Hct 27.0 % (30.3-42.9) L D 11/29/18 05:28 MCV 95 fl (79-97) 11/28/18 07:59 MCH 31 pg (28-32) 11/28/18 07:59 MCHC 33 % (30-34) 11/28/18 07:59 RDW 15.6 % (13.2-15.2) H 11/28/18 07:59 Plt Count 191 K/mm3 (140-440) 11/29/18 05:28 Lymph % (Auto) 25.8 % (13.4-35.0) 11/28/18 07:59 [place] % (Auto) 11.1 % (0.0-7.3) H 11/28/18 07:59 Eos % (Auto) 3.5 % (0.0-4.3) 11/28/18 07:59 Baso % (Auto) Sausage Grinder 11/28/18 07:59 Lymph # 1.1 K/mm3 (1.2-5.4) L 11/28/18 07:59 [place] # 0.5 K/mm3 (0.0-0.8) 11/28/18 07:59 Eos # 0.1 K/mm3 (0.0-0.4) 11/28/18 07:59 Baso # 0.1 K/mm3 (0.0-0.1) 11/28/18 07:59 Seg Neutrophils % 57.0 % (40.0-70.0) 11/28/18 07:59 Seg Neutrophils # 2.4 K/mm3 (1.8-7.7) 11/28/18 07:59 PT 14.0 Sec. (12.2-14.9) 11/27/18 14:34 INR 1.11 (0.87-1.13) 11/27/18 14:34 APTT 34.0 Sec. (24.2-36.6) 11/27/18 14:34 Heparin Anti-Xa Level < 0.10 U.I./ml (0.3-0.7) L 11/29/18 01:55 Sodium 138 mmol/L (137-145) 11/28/18 07:59 Potassium 5.5 mmol/L (3.6-5.0) H D 11/28/18 07:59 Chloride 92.6 mmol/L (98-107) L 11/28/18 07:59 Carbon Dioxide 27 mmol/L (22-30) 11/28/18 07:59 Anion Gap 24 mmol/L 11/28/18 07:59 BUN 57 mg/dL (7-17) H 11/28/18 07:59 Creatinine 4.6 mg/dL (0.7-1.2) H 11/28/18 07:59 Estimated GFR 9 ml/min 11/28/18 07:59 BUN/Creatinine Ratio 12 % 11/28/18 07:59 Glucose 98 mg/dL (65-100) 11/28/18 07:59 POC Glucose 109 (70-105) H 11/28/18 22:48 Hemoglobin A1c < 4.2 % (4-6) 11/27/18 21:42 Calcium 8.5 mg/dL (8.4-10.2) 11/28/18 07:59 Magnesium 2.70 mg/dL (1.7-2.3) H 11/27/18 14:34 Total Bilirubin 0.30 mg/dL (0.1-1.2) 11/28/18 07:59 AST 16 units/L (5-40) 11/28/18 07:59 ALT 7 units/L (7-56) 11/28/18 07:59 Alkaline Phosphatase 61 units/L (35-129) 11/28/18 07:59 Troponin T 0.587 ng/mL (0.00-0.029) H* 11/28/18 07:59 NT-Pro-B Natriuret Pep > 63494 pg/mL (0-900) H 11/27/18 12:53 Total Protein 7.3 g/dL (6.3-8.2) 11/28/18 07:59 Albumin 3.8 g/dL (3.9-5) L 11/28/18 07:59 Albumin/Globulin Ratio 1.1 % 11/28/18 07:59 Triglycerides 123 mg/dL (2-149) 11/27/18 12:53 Cholesterol 205 mg/dL (50-199) H 11/27/18 12:53 LDL Cholesterol Direct 145 mg/dL (50-130) H 11/27/18 12:53 HDL Cholesterol 51 mg/dL (40-59) 11/27/18 12:53 Cholesterol/HDL Ratio 4.01 % 11/27/18 12:53 Hepatitis A IgM Ab Non-reactive (NonReactive) 11/27/18 18:50 Hep Bs Antigen Non-reactive (Negative) 11/27/18 18:50 Hep B Core IgM Ab Non-reactive (NonReactive) 11/27/18 18:50 Hepatitis C Antibody Non-reactive (NonReactive) 11/27/18 18:50 Active Medications - Current Medications Current Medications: Generic Name Dose Route Start Last Admin Trade Name Freq PRN Reason Stop Dose Admin Acetaminophen 650 mg 11/27/18 21:08 11/29/18 10:25 Tylenol PO 650 mg Q4H PRN Administration Pain MILD(1-3)/Fever >100.5/RODRIGES Carvedilol 12.5 mg 11/28/18 10:00 11/29/18 21:13 Coreg PO 12.5 mg BID HIRAM Administration Heparin Sodium (Porcine) 5,000 unit 11/29/18 10:00 11/29/18 21:14 Heparin SUB-Q 5,000 unit Q12HR HIRAM Administration Hydralazine HCl 10 mg 11/27/18 22:32 11/28/18 22:45 Apresoline IV 10 mg Q4HR PRN Administration Blood Pressure Hydromorphone HCl 0.5 mg 11/27/18 21:08 Dilaudid IV Q3H PRN Pain , Severe (7-10) Sodium Chloride 100 mls @ 999 mls/hr 11/28/18 10:02 Nacl 0.9% IV JULIANE PRN Hypotension Losartan Potassium 100 mg 11/28/18 10:00 11/29/18 10:21 Cozaar PO 100 mg QDAY HIRAM Administration Metoclopramide HCl 5 mg 11/27/18 21:14 Reglan IV Q6H PRN Nausea And Vomiting Nifedipine 60 mg 11/28/18 13:00 11/29/18 10:24 Procardia Xl PO 60 mg QDAY HIRAM Administration Ondansetron HCl 4 mg 11/27/18 21:08 Zofran IV Q8H PRN Nausea And Vomiting Sodium Chloride 10 ml 11/27/18 22:00 11/29/18 22:33 Sodium Chloride Flush Syringe 10 Ml IV Not Given BID HIRAM Sodium Chloride 10 ml 11/27/18 21:08 Sodium Chloride Flush Syringe 10 Ml IV PRN PRN LINE FLUSH
--- NOTE | 2018-11-30 09:37 | Progress Note ---
Assessment and Plan 1. ESRD: Continue hemodialysis three times a week, TTS schedule. 2. Acute respiratory distress: Likely due to volume overload, improved. 3. Anemia: Epogen as needed. 4. Elevated Troponin: Cards consulted. 5. Uncontrolled HTN: Monitor BP. 6. DM-2. 7. Hypothyroid. 8. Advanced age. Examination: General appearance: well-developed, appears stated age, no distress EENT: ATNC, MARY ANN Neck: supple Respiratory: ctab Cardiology: regular, S1S2, no murmur Gastrointestinal: normoactive bowel sounds, no tenderness, no distended Integumentary: no rash, warm and dry Neurologic: able to move extremities Musculoskeletal: no edema Hemodialysis access: L arm AVF Subjective Date of service: 11/30/18 Interval history: Patient was seen and examined at the bedside. Per daughter patient is doing better today. Objective - Vital Signs Vital signs: Vital Signs - 12hr 11/29/18 11/30/18 11/30/18 23:37 00:38 03:51 Temperature 98.0 F 98.3 F Pulse Rate 60 60 61 Respiratory 16 16 Rate Blood Pressure 132/47 137/59 O2 Sat by Pulse 100 98 Oximetry 11/30/18 08:18 Temperature 98.3 F Pulse Rate 63 Respiratory 16 Rate Blood Pressure 163/58 O2 Sat by Pulse 97 Oximetry - Lab 11/29/18 05:28 11/28/18 07:59 Most recent lab results Calcium 8.5 mg/dL (8.4-10.2) 11/28/18 07:59 Magnesium 2.70 mg/dL (1.7-2.3) H 11/27/18 14:34 Medications & Allergies - Medications Allergies/Adverse Reactions: Allergies No Known Allergies Allergy (Unverified 11/27/18 12:08) Active Medications: Generic Name Dose Route Start Last Admin Trade Name Freq PRN Reason Stop Dose Admin Acetaminophen 650 mg 11/27/18 21:08 11/29/18 10:25 Tylenol PO 650 mg Q4H PRN Administration Pain MILD(1-3)/Fever >100.5/RODRIGES Carvedilol 12.5 mg 11/28/18 10:00 11/29/18 21:13 Coreg PO 12.5 mg BID HIRAM Administration Heparin Sodium (Porcine) 5,000 unit 11/29/18 10:00 11/29/18 21:14 Heparin SUB-Q 5,000 unit Q12HR HIRAM Administration Hydralazine HCl 10 mg 11/27/18 22:32 11/28/18 22:45 Apresoline IV 10 mg Q4HR PRN Administration Blood Pressure Hydromorphone HCl 0.5 mg 11/27/18 21:08 Dilaudid IV Q3H PRN Pain , Severe (7-10) Sodium Chloride 100 mls @ 999 mls/hr 11/28/18 10:02 Nacl 0.9% IV JULIANE PRN Hypotension Losartan Potassium 100 mg 11/28/18 10:00 11/29/18 10:21 Cozaar PO 100 mg QDAY HIRAM Administration Metoclopramide HCl 5 mg 11/27/18 21:14 Reglan IV Q6H PRN Nausea And Vomiting Nifedipine 60 mg 11/28/18 13:00 11/29/18 10:24 Procardia Xl PO 60 mg QDAY HIRAM Administration Ondansetron HCl 4 mg 11/27/18 21:08 Zofran IV Q8H PRN Nausea And Vomiting Sodium Chloride 10 ml 11/27/18 22:00 11/29/18 22:33 Sodium Chloride Flush Syringe 10 Ml IV Not Given BID HIRAM Sodium Chloride 10 ml 11/27/18 21:08 Sodium Chloride Flush Syringe 10 Ml IV PRN PRN LINE FLUSH
--- NOTE | 2018-11-30 13:20 | Progress Note ---
Assessment and Plan - Patient Problems (1) Pulmonary edema Current Visit: Yes Status: Acute Qualifiers: Chronicity: acute Qualified Code(s): J81.0 - Acute pulmonary edema Plan to address problem: The patient presents with recurrent acute pulmonary edema. Current presentation, the systolic blood pressure was markedly elevated at 211. Possible etiologies include uncontrolled hypertension, underlying left ventricular systolic dysfunction, and possible coronary ischemia. I have discussed these findings with the patient's family, we will aggressively treat the blood pressure, and consider invasive coronary angiography if the patient and the family agree to this strategy. Otherwise due to her frail status and multiple comorbidities, we will continue conservative cardiac medical therapy. Subjective Date of service: 11/30/18 Interval history: Patient is comfortable, no acute distress. No new cardiac complaints. Objective Vital Signs Temp Pulse Pulse Pulse Resp BP Pulse Ox 11/30/18 12:32 60 61 18 97 11/30/18 12:00 61 11/30/18 08:18 98.3 F 63 16 163/58 97 11/30/18 03:51 98.3 F 61 16 137/59 98 11/30/18 00:38 60 11/29/18 23:37 98.0 F 60 16 132/47 100 11/29/18 21:13 65 148/56 11/29/18 19:57 98.2 F 65 16 148/56 94 11/29/18 16:49 98.1 F 18 150/63 - Physical Examination General: No Apparent Distress HEENT: Positive: PERRL Neck: Positive: neck supple Cardiac: Positive: Reg Rate and Rhythm Lungs: Positive: Decreased Breath Sounds Neuro: Positive: Grossly Intact Abdomen: Positive: Soft Skin: Positive: Clear Extremities: Absent: edema
[2018-11-30] MEDS: LOSARTAN 50 MG TAB PO SCH (14:00)
[2018-11-30] MEDS: carvediloL 12.5 MG TAB PO SCH ×2 (14:01→21:43)
[2018-11-30] MEDS: NIFEdipine XL 60 MG TAB PO SCH (14:01)
[2018-11-30] MEDS: HEPARIN 5,000 UNIT/1 ML VIAL SUB-Q SCH ×2 (14:02→21:44)
[2018-11-30] MEDS: hydrALAZINE 20 MG/1 ML INJ IV PRN (16:11)
[2018-11-30] MEDS ORDERED: SODIUM CHLORIDE 0.9% 100 ML IV PRN (22:03)
[2018-12-01] MEDS: HEPARIN 5,000 UNIT/1 ML VIAL SUB-Q SCH ×2 (09:20→21:03)
--- NOTE | 2018-12-01 09:43 | Progress Note ---
Assessment and Plan Pulmonary edema ESRD on dialysis Hypertension Diabetes AND/DNR status Echocardiogram done 11/2018 reports a dilated cardiomyopathy, moderate to severe left ventricular systolic dysfunction, ejection fraction 30-35%. No ischemia by MPI 12/2017. Recommendations: Dialysis for fluid management. Medical therapy for systolic left ventricular dysfunction including afterload agents, beta blockers. Otherwise, conservative cardiac management. Subjective Date of service: 12/01/18 Interval history: Current BP 127/63. No distress noted. Objective Vital Signs Temp Pulse Pulse Pulse Resp BP BP 12/01/18 08:19 97.9 F 71 18 127/63 12/01/18 04:49 98.2 F 12/01/18 04:48 60 18 165/63 11/30/18 23:44 98.5 F 67 16 185/64 11/30/18 21:43 78 156/56 11/30/18 20:11 98.4 F 78 16 156/56 11/30/18 20:00 67 11/30/18 18:38 191/73 11/30/18 17:06 98.4 F 63 18 179/64 11/30/18 16:11 62 204/75 11/30/18 16:10 18 204/75 11/30/18 14:01 62 189/70 11/30/18 14:00 62 189/70 11/30/18 13:56 63 18 194/64 11/30/18 12:32 60 61 18 11/30/18 12:00 61 Pulse Ox 12/01/18 08:19 97 12/01/18 04:49 12/01/18 04:48 94 11/30/18 23:44 95 11/30/18 21:43 11/30/18 20:11 98 11/30/18 20:00 11/30/18 18:38 11/30/18 17:06 96 11/30/18 16:11 11/30/18 16:10 11/30/18 14:01 11/30/18 14:00 11/30/18 13:56 94 11/30/18 12:32 97 11/30/18 12:00 - Physical Examination General: No Apparent Distress HEENT: Positive: PERRL Neck: Positive: neck supple Neuro: Positive: Grossly Intact Abdomen: Positive: Soft Skin: Positive: Clear Extremities: Absent: edema
--- NOTE | 2018-12-01 09:58 | Progress Note ---
Assessment and Plan 1. ESRD: Continue hemodialysis three times a week, TTS schedule. 2. Acute respiratory distress: Likely due to volume overload, improved. 3. Anemia: Epogen as needed. 4. Elevated Troponin: Cards consulted. 5. Uncontrolled HTN: Monitor BP. 6. DM-2. 7. Hypothyroid. 8. Advanced age. Examination: General appearance: well-developed, appears stated age, no distress EENT: ATNC, MARY ANN Neck: supple Respiratory: ctab Cardiology: regular, S1S2, no murmur Gastrointestinal: normoactive bowel sounds, no tenderness, no distended Integumentary: no rash, warm and dry Neurologic: able to move extremities Musculoskeletal: no edema Hemodialysis access: L arm AVF Subjective Date of service: 12/01/18 Interval history: Patient was seen and examined at the bedside. Objective - Vital Signs Vital signs: Vital Signs - 12hr 11/30/18 12/01/18 12/01/18 23:44 04:48 04:49 Temperature 98.5 F 98.2 F Pulse Rate 67 60 Respiratory 16 18 Rate Blood Pressure 165/63 Blood Pressure 185/64 [Left] O2 Sat by Pulse 95 94 Oximetry 12/01/18 08:19 Temperature 97.9 F Pulse Rate 71 Respiratory 18 Rate Blood Pressure 127/63 Blood Pressure [Left] O2 Sat by Pulse 97 Oximetry - Lab 11/29/18 05:28 11/28/18 07:59 Most recent lab results Calcium 8.5 mg/dL (8.4-10.2) 11/28/18 07:59 Magnesium 2.70 mg/dL (1.7-2.3) H 11/27/18 14:34 Medications & Allergies - Medications Allergies/Adverse Reactions: Allergies No Known Allergies Allergy (Unverified 11/27/18 12:08) Home Medications: Home Medications Medication Instructions Recorded Confirmed Last Taken Type Calcium Acetate 667 mg PO TID 12/01/18 12/01/18 Unknown History Levothyroxine 100 mg PO ONCE 12/01/18 12/01/18 12/01/18 16:33 History amLODIPine 10 mg PO ONCE 12/01/18 12/01/18 12/01/18 16:37 History cloNIDine [Catapres] 0.3 tab PO BID 12/01/18 12/01/18 12/01/18 16:31 History hydrALAZINE 100 mg PO TID 12/01/18 12/01/18 12/01/18 16:35 History Active Medications: Generic Name Dose Route Start Last Admin Trade Name Sudhakar PRN Reason Stop Dose Admin Acetaminophen 650 mg 11/27/18 21:08 11/29/18 10:25 Tylenol PO 650 mg Q4H PRN Administration Pain MILD(1-3)/Fever >100.5/RODRIGES Carvedilol 12.5 mg 11/28/18 10:00 11/30/18 21:43 Coreg PO 12.5 mg BID HIRAM Administration Epoetin Michael 10,000 unit 11/30/18 22:03 Procrit SUB-Q JULIANE PRN hemodialysis Heparin Sodium (Porcine) 5,000 unit 11/29/18 10:00 12/01/18 09:20 Heparin SUB-Q 5,000 unit Q12HR HIRAM Administration Hydralazine HCl 10 mg 11/27/18 22:32 11/30/18 16:11 Apresoline IV 10 mg Q4HR PRN Administration Blood Pressure Hydromorphone HCl 0.5 mg 11/27/18 21:08 Dilaudid IV Q3H PRN Pain , Severe (7-10) Sodium Chloride 100 mls @ 999 mls/hr 11/30/18 22:03 Nacl 0.9% IV JULIANE PRN Hypotension Losartan Potassium 100 mg 11/28/18 10:00 11/30/18 14:00 Cozaar PO 100 mg QDAY HIRAM Administration Metoclopramide HCl 5 mg 11/27/18 21:14 Reglan IV Q6H PRN Nausea And Vomiting Nifedipine 60 mg 11/28/18 13:00 11/30/18 14:01 Procardia Xl PO 60 mg QDAY HIRAM Administration Ondansetron HCl 4 mg 11/27/18 21:08 Zofran IV Q8H PRN Nausea And Vomiting Sodium Chloride 10 ml 11/27/18 22:00 12/01/18 09:20 Sodium Chloride Flush Syringe 10 Ml IV 10 ml BID HIRAM Administration Sodium Chloride 10 ml 11/27/18 21:08 Sodium Chloride Flush Syringe 10 Ml IV PRN PRN LINE FLUSH
[2018-12-01] MEDS: carvediloL 12.5 MG TAB PO SCH ×3 (11:03→21:02)
[2018-12-01] MEDS: LOSARTAN 50 MG TAB PO SCH ×2 (11:04→14:35)
[2018-12-01] MEDS: NIFEdipine XL 60 MG TAB PO SCH ×2 (11:05→14:36)
[2018-12-01] MEDS ORDERED: SODIUM CHLORIDE*PRIMING MACHINE ONLY FOR DIALYSIS MC ONE (12:34)
[2018-12-01] MEDS: EPOETIN ALFA 10,000 UNIT/1 ML INJ SUB-Q PRN (12:38)
--- NOTE | 2018-12-01 14:21 | Progress Note ---
Subjective Date of service: 12/01/18 Interval history: Assessment and plan: Ms. William Kang is a 83 yo [place] non central african speaking woman with a history of hypertension, dyslipidemia and ESRD on HD TTS who presented to [facility] ED with sob and chest pains. 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 We add hydralazine Pulmonary edema related to above ESRD on HD TTS: consulted Nephrology, input noted Hypothyroidism: continue Synthroid. Dyslipidemia: statin DNR Disposition: continue inpatient care, ECHO results reviewed: EF 20-25% History Interval history: Patient was seen and examined. Follow-up on current diagnosis NSTEMI. No overnight events reported to me. Patient denies any nausea/vomiting or severe headaches. Imaging, nursing note, chart, labs and old chart reviewed. Discussed with patient via Designated Broker/daughter and grand-daughter over the phone Hospitalist Physical - Physical exam Narrative exam: Gen: thin frial, weight is wrong in the system, pt maybe 97.9lbs not 97.9 kg, NAD, Awake, Alert, Orientated HEENT: NCAT, EOMI, PERRL, OP Clear Neck: supple, no adenopathy, no thyromegaly, no JVD CVS/Heart: RRR, normal S1S2, pulses present bilaterally Chest/Lungs: diminished with bilateral basal GI/Abdomen: soft, NTND, good bowel sounds, no guarding or rebound /Bladder: no suprapubic tenderness, no CVA or paraspinal tenderness Extermity/Skin: no c/c/e, no obvious rash MSK: FROM x 4 Neuro: CN 2-12 grossly intact, no new focal deficits Psych: calm Objective - Constitutional Vitals: Vital Signs - 12hr 12/01/18 12/01/18 12/01/18 04:48 04:49 08:19 Temperature 98.2 F 97.9 F Pulse Rate 60 71 Pulse Rate [ Apical] Pulse Rate [ Radial] Pulse Rate [ Right Radial] Respiratory 18 18 Rate Blood Pressure 165/63 127/63 O2 Sat by Pulse 94 97 Oximetry 12/01/18 12/01/18 12/01/18 10:00 10:15 10:32 Temperature 98.7 F Pulse Rate 59 L 62 62 Pulse Rate [ 71 Apical] Pulse Rate [ 71 Radial] Pulse Rate [ 71 Right Radial] Respiratory 19 18 Rate Blood Pressure 151/65 155/58 O2 Sat by Pulse 98 Oximetry 12/01/18 12/01/18 12/01/18 10:45 11:00 11:03 Temperature Pulse Rate 61 63 71 Pulse Rate [ Apical] Pulse Rate [ Radial] Pulse Rate [ Right Radial] Respiratory Rate Blood Pressure 174/70 177/70 127/63 O2 Sat by Pulse Oximetry 12/01/18 12/01/18 12/01/18 11:04 11:15 11:30 Temperature Pulse Rate 71 61 59 L Pulse Rate [ Apical] Pulse Rate [ Radial] Pulse Rate [ Right Radial] Respiratory Rate Blood Pressure 127/63 172/70 170/74 O2 Sat by Pulse Oximetry 12/01/18 12/01/18 12/01/18 11:45 12:00 12:15 Temperature Pulse Rate 60 63 65 Pulse Rate [ Apical] Pulse Rate [ Radial] Pulse Rate [ Right Radial] Respiratory Rate Blood Pressure 156/73 163/72 147/53 O2 Sat by Pulse Oximetry 12/01/18 12/01/18 12/01/18 12:30 12:45 13:00 Temperature Pulse Rate 64 65 64 Pulse Rate [ Apical] Pulse Rate [ Radial] Pulse Rate [ Right Radial] Respiratory Rate Blood Pressure 161/67 175/79 157/71 O2 Sat by Pulse Oximetry 12/01/18 12/01/18 12/01/18 13:15 13:24 13:30 Temperature 97 F L Pulse Rate 67 64 63 Pulse Rate [ Apical] Pulse Rate [ Radial] Pulse Rate [ Right Radial] Respiratory 18 Rate Blood Pressure 159/90 178/80 176/75 O2 Sat by Pulse Oximetry - Labs CBC & Chem 7: 11/29/18 05:28 11/28/18 07:59
[2018-12-01] MEDS: hydrALAZINE 25 MG TAB PO SCH ×2 (16:12→21:01)
[2018-12-01] MEDS: hydrALAZINE 20 MG/1 ML INJ IV PRN ×2 (18:33→21:02)
[2018-12-02] MEDS: hydrALAZINE 25 MG TAB PO SCH ×4 (05:42→21:20)
[2018-12-02] MEDS: hydrALAZINE 20 MG/1 ML INJ IV PRN (05:44)
[2018-12-02] MEDS: carvediloL 12.5 MG TAB PO SCH ×2 (10:01→21:21)
[2018-12-02] MEDS: NIFEdipine XL 60 MG TAB PO SCH (10:02)
[2018-12-02] MEDS: HEPARIN 5,000 UNIT/1 ML VIAL SUB-Q SCH ×2 (10:02→21:20)
[2018-12-02] MEDS: LOSARTAN 50 MG TAB PO SCH (10:02)
--- NOTE | 2018-12-02 10:33 | Progress Note ---
<KIMBER EGAN - Last Filed: 12/02/18 10:30> Assessment and Plan Pulmonary edema ESRD on dialysis Hypertension Diabetes AND/DNR status Dilated Cardiomyopathy Echocardiogram done 11/2018 reports a dilated cardiomyopathy, moderate to severe left ventricular systolic dysfunction, ejection fraction 30-35%. No ischemia by MPI 12/2017. Recommendations: Dialysis for fluid management. Continue medical therapy for systolic left ventricular dysfunction. Otherwise, conservative cardiac management. Subjective Date of service: 12/02/18 Interval history: Patient is resting in bed comfortably. No cardiac events overnight. Family member is at the bedside. Objective Vital Signs Temp Pulse Resp BP Pulse Ox 12/02/18 08:01 98.4 F 61 18 186/61 98 12/02/18 05:44 60 163/58 12/02/18 05:42 60 163/58 12/02/18 03:45 98.2 F 60 18 163/58 97 12/01/18 22:43 98.1 F 62 18 138/53 98 12/01/18 21:02 61 233/71 12/01/18 21:01 61 233/71 12/01/18 19:40 98.1 F 61 19 223/71 99 12/01/18 18:33 62 197/62 96 12/01/18 17:14 98.3 F 64 18 174/59 97 12/01/18 17:00 65 12/01/18 16:12 64 205/72 12/01/18 16:08 63 205/72 99 12/01/18 14:36 64 209/75 12/01/18 14:35 64 209/75 12/01/18 14:33 64 209/75 99 12/01/18 13:30 97 F L 63 18 176/75 12/01/18 13:24 64 178/80 12/01/18 13:15 67 159/90 12/01/18 13:00 64 157/71 12/01/18 12:45 65 175/79 12/01/18 12:30 64 161/67 12/01/18 12:15 65 147/53 12/01/18 12:00 64 163/72 12/01/18 11:45 60 156/73 12/01/18 11:30 59 L 170/74 12/01/18 11:15 61 172/70 12/01/18 11:00 63 177/70 12/01/18 10:45 61 174/70 12/01/18 10:32 62 155/58 - Physical Examination General: No Apparent Distress HEENT: Positive: PERRL Neck: Positive: neck supple Cardiac: Positive: Reg Rate and Rhythm Lungs: Positive: Normal Breath Sounds Neuro: Positive: Grossly Intact Extremities: Absent: edema <TED LICONA - Last Filed: 12/02/18 22:09> Assessment and Plan I have seen and evaluated the patient and agree with the assessment and plan. Continue goal directed medical therapy for treatment of LV dysfunction. Objective Vital Signs Temp Pulse Resp BP Pulse Ox 12/02/18 19:40 98.4 F 54 L 16 155/52 97 12/02/18 18:00 56 L 150/55 97 12/02/18 11:57 97.4 F L 55 L 16 185/73 100 12/02/18 10:00 52 L 12/02/18 08:01 98.4 F 61 18 186/61 98 12/02/18 05:44 60 163/58 12/02/18 05:42 60 163/58 12/02/18 03:45 98.2 F 60 18 163/58 97 12/01/18 22:43 98.1 F 62 18 138/53 98
--- NOTE | 2018-12-02 10:42 | Progress Note ---
Assessment and Plan 1. ESRD: Continue hemodialysis three times a week, TTS schedule. 2. Acute respiratory distress: Likely due to volume overload, improved. 3. Anemia: Epogen as needed. 4. Elevated Troponin: Followed by Cards. 5. Uncontrolled HTN: Monitor BP. 6. DM-2. 7. Hypothyroid. 8. Advanced age. Examination: General appearance: well-developed, appears stated age, no distress EENT: ATNC, MARY ANN Neck: supple Respiratory: ctab Cardiology: regular, S1S2, no murmur Gastrointestinal: normoactive bowel sounds, no tenderness, no distended Integumentary: no rash, warm and dry Neurologic: able to move extremities Musculoskeletal: no edema Hemodialysis access: L arm AVF Subjective Date of service: 12/02/18 Interval history: Patient was seen and examined at the bedside. Objective - Vital Signs Vital signs: Vital Signs - 12hr 12/01/18 12/02/18 12/02/18 22:43 03:45 05:42 Temperature 98.1 F 98.2 F Pulse Rate 62 60 60 Respiratory 18 18 Rate Blood Pressure 138/53 163/58 163/58 O2 Sat by Pulse 98 97 Oximetry 12/02/18 12/02/18 05:44 08:01 Temperature 98.4 F Pulse Rate 60 61 Respiratory 18 Rate Blood Pressure 163/58 186/61 O2 Sat by Pulse 98 Oximetry - Lab 11/29/18 05:28 11/28/18 07:59 Most recent lab results Calcium 8.5 mg/dL (8.4-10.2) 11/28/18 07:59 Magnesium 2.70 mg/dL (1.7-2.3) H 11/27/18 14:34 Medications & Allergies - Medications Allergies/Adverse Reactions: Allergies No Known Allergies Allergy (Unverified 11/27/18 12:08) Home Medications: Home Medications Medication Instructions Recorded Confirmed Last Taken Type Calcium Acetate 667 mg PO TID 12/01/18 12/01/18 Unknown History Levothyroxine 100 mg PO ONCE 12/01/18 12/01/18 12/01/18 16:33 History amLODIPine 10 mg PO ONCE 12/01/18 12/01/18 12/01/18 16:37 History cloNIDine [Catapres] 0.3 tab PO BID 12/01/18 12/01/18 12/01/18 16:31 History hydrALAZINE 100 mg PO TID 12/01/18 12/01/18 12/01/18 16:35 History Active Medications: Generic Name Dose Route Start Last Admin Trade Name Freq PRN Reason Stop Dose Admin Acetaminophen 650 mg 11/27/18 21:08 11/29/18 10:25 Tylenol PO 650 mg Q4H PRN Administration Pain MILD(1-3)/Fever >100.5/RODRIGES Carvedilol 12.5 mg 11/28/18 10:00 12/02/18 10:01 Coreg PO 12.5 mg BID HIRAM Administration Epoetin Michael 10,000 unit 11/30/18 22:03 12/01/18 12:38 Procrit SUB-Q 10,000 unit JULIANE PRN Administration hemodialysis Heparin Sodium (Porcine) 5,000 unit 11/29/18 10:00 12/02/18 10:02 Heparin SUB-Q 5,000 unit Q12HR HIRAM Administration Hydralazine HCl 10 mg 11/27/18 22:32 12/02/18 05:44 Apresoline IV 10 mg Q4HR PRN Administration Blood Pressure Hydralazine HCl 25 mg 12/01/18 15:00 12/02/18 05:42 Apresoline PO 25 mg Q8HR HIRAM Administration Hydromorphone HCl 0.5 mg 11/27/18 21:08 Dilaudid IV Q3H PRN Pain , Severe (7-10) Sodium Chloride 100 mls @ 999 mls/hr 11/30/18 22:03 Nacl 0.9% IV JULIANE PRN Hypotension Losartan Potassium 100 mg 11/28/18 10:00 12/02/18 10:02 Cozaar PO 100 mg QDAY HIRAM Administration Metoclopramide HCl 5 mg 11/27/18 21:14 Reglan IV Q6H PRN Nausea And Vomiting Nifedipine 60 mg 11/28/18 13:00 12/02/18 10:02 Procardia Xl PO 60 mg QDAY HIRAM Administration Ondansetron HCl 4 mg 11/27/18 21:08 Zofran IV Q8H PRN Nausea And Vomiting Sodium Chloride 10 ml 11/27/18 22:00 12/02/18 10:02 Sodium Chloride Flush Syringe 10 Ml IV 10 ml BID HIRAM Administration Sodium Chloride 10 ml 11/27/18 21:08 Sodium Chloride Flush Syringe 10 Ml IV PRN PRN LINE FLUSH
[2018-12-02] MEDS ORDERED: NIFEdipine XL 60 MG TAB PO SCH (11:22)
--- NOTE | 2018-12-02 11:23 | Progress Note ---
Assessment and Plan Assessment and plan: Acute on chronic systolic heart failure. Echocardiogram done 11/2018 reports a dilated cardiomyopathy, moderate to severe left ventricular systolic dysfunction, ejection fraction 30-35%. No ischemia by MPI 12/2017. Continue hemodialysis for fluid management and medical therapy for systolic heart failur e. Cardiology following. ESRD on dialysis. Continue hemodialysis per nephrology. Accelerated Hypertension. Continue antihypertensive medications. Increase hydralazine and Procardia. Diabetes mellitus type II. Continue Accu-Cheks and sliding scale insulin. Hypothyroidism. Continue Synthroid. Hyperlipidemia. Continue statin. Dilated Cardiomyopathy. As above. History Interval history: No new issues overnight. Patient's daughter reports shortness of breath is improved. Hospitalist Physical - Constitutional Vitals: Temp Pulse Resp BP Pulse Ox 98.4 F 52 L 18 186/61 98 12/02/18 08:01 12/02/18 10:00 12/02/18 08:01 12/02/18 08:01 12/02/18 08:01 General appearance: Present: no acute distress, cachectic - EENT Eyes: Present: PERRL, EOM intact ENT: hearing intact, clear oral mucosa, dentition normal - Neck Neck: Present: supple, normal ROM - Respiratory Respiratory effort: normal Respiratory: bilateral: CTA - Cardiovascular Rhythm: regular Heart Sounds: Present: S1 & S2. Absent: gallop, rub - Extremities Extremities: no ischemia, No edema, Full ROM - Abdominal General gastrointestinal: soft, non-tender, non-distended, normal bowel sounds - Integumentary Integumentary: Present: clear, warm, dry - Neurologic Neurologic: CNII-XII intact, moves all extremities Results - Labs CBC & Chem 7: 11/29/18 05:28 11/28/18 07:59 Labs: Laboratory Last Values WBC 4.3 K/mm3 (4.5-11.0) L 11/28/18 07:59 RBC 3.49 M/mm3 (3.65-5.03) L 11/28/18 07:59 Hgb 9.1 gm/dl (10.1-14.3) L 11/29/18 05:28 Hct 27.0 % (30.3-42.9) L D 11/29/18 05:28 MCV 95 fl (79-97) 11/28/18 07:59 MCH 31 pg (28-32) 11/28/18 07:59 MCHC 33 % (30-34) 11/28/18 07:59 RDW 15.6 % (13.2-15.2) H 11/28/18 07:59 Plt Count 191 K/mm3 (140-440) 11/29/18 05:28 Lymph % (Auto) 25.8 % (13.4-35.0) 11/28/18 07:59 [place] % (Auto) 11.1 % (0.0-7.3) H 11/28/18 07:59 Eos % (Auto) 3.5 % (0.0-4.3) 11/28/18 07:59 Baso % (Auto) [facility] 11/28/18 07:59 Lymph # 1.1 K/mm3 (1.2-5.4) L 11/28/18 07:59 [place] # 0.5 K/mm3 (0.0-0.8) 11/28/18 07:59 Eos # 0.1 K/mm3 (0.0-0.4) 11/28/18 07:59 Baso # 0.1 K/mm3 (0.0-0.1) 11/28/18 07:59 Seg Neutrophils % 57.0 % (40.0-70.0) 11/28/18 07:59 Seg Neutrophils # 2.4 K/mm3 (1.8-7.7) 11/28/18 07:59 PT 14.0 Sec. (12.2-14.9) 11/27/18 14:34 INR 1.11 (0.87-1.13) 11/27/18 14:34 APTT 34.0 Sec. (24.2-36.6) 11/27/18 14:34 Heparin Anti-Xa Level < 0.10 U.I./ml (0.3-0.7) L 11/29/18 01:55 Sodium 138 mmol/L (137-145) 11/28/18 07:59 Potassium 5.5 mmol/L (3.6-5.0) H D 11/28/18 07:59 Chloride 92.6 mmol/L (98-107) L 11/28/18 07:59 Carbon Dioxide 27 mmol/L (22-30) 11/28/18 07:59 Anion Gap 24 mmol/L 11/28/18 07:59 BUN 57 mg/dL (7-17) H 11/28/18 07:59 Creatinine 4.6 mg/dL (0.7-1.2) H 11/28/18 07:59 Estimated GFR 9 ml/min 11/28/18 07:59 BUN/Creatinine Ratio 12 % 11/28/18 07:59 Glucose 98 mg/dL (65-100) 11/28/18 07:59 POC Glucose 179 (70-105) H 12/01/18 20:35 Hemoglobin A1c < 4.2 % (4-6) 11/27/18 21:42 Calcium 8.5 mg/dL (8.4-10.2) 11/28/18 07:59 Magnesium 2.70 mg/dL (1.7-2.3) H 11/27/18 14:34 Total Bilirubin 0.30 mg/dL (0.1-1.2) 11/28/18 07:59 AST 16 units/L (5-40) 11/28/18 07:59 ALT 7 units/L (7-56) 11/28/18 07:59 Alkaline Phosphatase 61 units/L (35-129) 11/28/18 07:59 Troponin T 0.587 ng/mL (0.00-0.029) H* 11/28/18 07:59 NT-Pro-B Natriuret Pep > 89301 pg/mL (0-900) H 11/27/18 12:53 Total Protein 7.3 g/dL (6.3-8.2) 11/28/18 07:59 Albumin 3.8 g/dL (3.9-5) L 11/28/18 07:59 Albumin/Globulin Ratio 1.1 % 11/28/18 07:59 Triglycerides 123 mg/dL (2-149) 11/27/18 12:53 Cholesterol 205 mg/dL (50-199) H 11/27/18 12:53 LDL Cholesterol Direct 145 mg/dL (50-130) H 11/27/18 12:53 HDL Cholesterol 51 mg/dL (40-59) 11/27/18 12:53 Cholesterol/HDL Ratio 4.01 % 11/27/18 12:53 Hepatitis A IgM Ab Non-reactive (NonReactive) 11/27/18 18:50 Hep Bs Antigen Non-reactive (Negative) 11/27/18 18:50 Hep B Core IgM Ab Non-reactive (NonReactive) 11/27/18 18:50 Hepatitis C Antibody Non-reactive (NonReactive) 11/27/18 18:50 Active Medications - Current Medications Current Medications: Generic Name Dose Route Start Last Admin Trade Name Freq PRN Reason Stop Dose Admin Acetaminophen 650 mg 11/27/18 21:08 11/29/18 10:25 Tylenol PO 650 mg Q4H PRN Administration Pain MILD(1-3)/Fever >100.5/RODRIGES Carvedilol 12.5 mg 11/28/18 10:00 12/02/18 10:01 Coreg PO 12.5 mg BID HIRAM Administration Epoetin Michael 10,000 unit 11/30/18 22:03 12/01/18 12:38 Procrit SUB-Q 10,000 unit JULIANE PRN Administration hemodialysis Heparin Sodium (Porcine) 5,000 unit 11/29/18 10:00 12/02/18 10:02 Heparin SUB-Q 5,000 unit Q12HR HIRAM Administration Hydralazine HCl 10 mg 11/27/18 22:32 12/02/18 05:44 Apresoline IV 10 mg Q4HR PRN Administration Blood Pressure Hydralazine HCl 25 mg 12/01/18 15:00 12/02/18 05:42 Apresoline PO 25 mg Q8HR HIRAM Administration Hydromorphone HCl 0.5 mg 11/27/18 21:08 Dilaudid IV Q3H PRN Pain , Severe (7-10) Sodium Chloride 100 mls @ 999 mls/hr 11/30/18 22:03 Nacl 0.9% IV JULIANE PRN Hypotension Losartan Potassium 100 mg 11/28/18 10:00 12/02/18 10:02 Cozaar PO 100 mg QDAY HIRAM Administration Metoclopramide HCl 5 mg 11/27/18 21:14 Reglan IV Q6H PRN Nausea And Vomiting Nifedipine 60 mg 11/28/18 13:00 12/02/18 10:02 Procardia Xl PO 60 mg QDAY HIRAM Administration Ondansetron HCl 4 mg 11/27/18 21:08 Zofran IV Q8H PRN Nausea And Vomiting Sodium Chloride 10 ml 11/27/18 22:00 12/02/18 10:02 Sodium Chloride Flush Syringe 10 Ml IV 10 ml BID HIRAM Administration Sodium Chloride 10 ml 11/27/18 21:08 Sodium Chloride Flush Syringe 10 Ml IV PRN PRN LINE FLUSH Nutrition/Malnutrition Assess - Dietary Evaluation Nutrition/Malnutrition Findings: Nutrition Notes Start: 12/02/18 09:58 Freq: Status: Active Protocol: Document 12/02/18 09:58 RM (Rec: 12/02/18 10:24 RM [id number]) Nutrition Notes Need for Assessment generated from: Low BMI Initial or Follow up Assessment Current Diagnosis Hypertension,Heart Failure Other Pertinent Diagnosis ESRD on HD, Pulmonary edema Current Diet Cardiac Labs/Tests K 5.5 Pertinent Medications Reviewed Height 4 ft 11 in Weight 38.6 kg [place] Body Weight (kg) 43.18 BMI 17.2 Weight change and time frame Current wt [facility] from [facility] Subjective/Other Information Screened for low BMI. Pt and pt daughter in room at time of visit. Pt and pt daughter speak very little [place] so pt granddaughter acted as bread pan greaser via phone . Stated that [employer]TE[employer] WORK[employer] pt ate 3 small meals daily which was often oatmeal and sometimes rice or chicken w/crackers, carrots, and broccoli. Stated that pt eats 75% of her meals here despite not wanting to eat yesterday and today d/t constipation. Unsure of dry wt . Noted deltoid and temporal wasting. 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 No Is Patient Ambulatory and/or Out of Bed Yes REE-([place]-St. Jeor-ambulatory/OOB) [ 964.119 [id number]] Kcal/Kg value to use for calculation 34 Approximate Energy Requirements Using 1312 kcal/Kg Calculation Used for Recommendations Kcal/kg Additional Notes Protein Needs: 46-58g (1.2-1. 5g/kg) Fluid Needs: 1-1.5 L/day Nutrition Intervention Change Diet Order: Renal Add Supplement/Snack (indicate name/kcal Nep[place] 1 daily /protein ) Provides kCal: 350 Provides Protein (gm) 19 Goal #1 Continue to meet at least 75% of calorie and protein needs via PO and ONS intakes Goal #2 Wt gain/maintenance Anticipated Discharge Needs: Renal diet Follow-Up By: 12/04/18 Additional Comments Follow for PO and ONS intakes
[2018-12-02] MEDS ORDERED: POLYETHYLENE GLYCOL 3350 17 GM POWDER PO PRN (11:30)
[2018-12-02] MEDS ORDERED: NIFEdipine XL 30 MG TAB PO ONE (12:00)
[2018-12-03] MEDS: hydrALAZINE 25 MG TAB PO SCH ×2 (05:08→13:53)
--- NOTE | 2018-12-03 08:21 | Discharge Summary ---
Providers - Providers Date of Admission: 11/27/18 18:57 Date of discharge: 12/03/18 Attending physician: JAGDISH BAILEY 11/27/18 15:02 Consult to Cardiology [CONS] Stat Consulting Provider: NOEL GALLEGOS Reason For Exam: Ant RI in evolution?, Pulmonary edema 11/27/18 15:40 Consult to Physician [CONS] Stat Comment: Consulting Provider: JEAN-PAUL COELHO Physician Instructions: Reason For Exam: ESRD on HD, Pulmonary edema Primary care physician: PLACIDO AYALA Hospitalization Reason for admission: a/c sys hf Condition: Stable Hospital course: 83-year-old [place] female with past medical history of end-stage renal disease on hemodialysis, chronic hypertension, and chronic diabetes presented through the emergency department with complaints of shortness of breath and chest pain. On November 09, less than 2 weeks ago, she presented here with acute pulmonary edema. At that time an echocardiogram showed left ventricular ejection fraction of 30-35%. After the heart failure fluid overload resolved, a myocardial perfusion study reported no significant ischemia, she was recommended for medical therapy. Cardiology saw the patient in consultation at that time as well as on this admission. The patient was readmitted with shortness of breath and again the chest x-ray is consistent with acute pulmonary edema. The patient has hemodialysis Tuesdays, and Saturdays and had not missed any sessions prior to admission. Her ECG on this presentation was a sinus rhythm with poor R-wave progression and biphasic T waves in the anterior leads. These T-wave abnormalities were present on her previous ECG 2 weeks ago. Cardiology reports no evidence of an non-ST elevation RI. Patient did have elevated troponin which was likely related to renal disease and accelerated hypertension. The patient was also seen by nephrology in consultation and underwent her scheduled hemodialysis for appropriate volume control and resolution of the pulmonary edema. Cardiology initially considered coronary angiography but opted for conservative medical management instead because of her frail status and multiple comorbidities. The patient returned back to her baseline respiratory status and is felt to have received maximal hospital benefit for discharge. Dedicated discharge time 35min. Disposition: - TO HOME OR SELFCARE Time spent for discharge: 35 - Discharge Diagnoses (1) Acute on chronic systolic (congestive) heart failure Status: Acute (2) ESRD (end stage renal disease) on dialysis Status: Acute (3) Elevated troponin Status: Acute (4) Accelerated hypertension Status: Acute (5) Hypothyroid Status: Acute (6) ESRD (end stage renal disease) on dialysis Status: Acute Core Measure Documentation - Palliative Care Palliative Care/ Comfort Measures: Not Applicable - Core Measures Any of the following diagnoses?: heart failure - Heart Failure Discharge Requirements ENRRIQUE/ARB for LVSD if EF <40%: Yes Beta pierre at discharge: Yes Exam - Constitutional Vitals: Temp Pulse Resp BP Pulse Ox 98.0 F 55 L 18 171/55 99 12/03/18 07:11 12/03/18 04:49 12/03/18 07:11 12/03/18 07:11 12/03/18 04:49 General appearance: Present: no acute distress, well-nourished - EENT Eyes: Present: PERRL ENT: hearing intact, clear oral mucosa - Neck Neck: Present: supple, normal ROM - Respiratory Respiratory effort: normal Respiratory: bilateral: CTA - Cardiovascular Heart Sounds: Present: S1 & S2. Absent: rub, click - Extremities Extremities: pulses symmetrical, No edema Peripheral Pulses: within normal limits - Abdominal General gastrointestinal: Present: soft, non-tender, non-distended, normal bowel sounds Female genitourinary: Present: normal - Integumentary Integumentary: Present: clear, warm, dry - Musculoskeletal Musculoskeletal: gait normal, strength equal bilaterally - Psychiatric Psychiatric: appropriate mood/affect, intact judgment & insight - Neurologic Neurologic: CNII-XII intact, moves all extremities Plan Activity: advance as tolerated Weight Bearing Status: Weight Bear as Tolerated Diet: low fat, low cholesterol, low salt Special Instructions: restrict fluid intake to (1 L) Follow up with: PRIMARY CARE, [Referring] - 3-5 Days Prescriptions: Carvedilol [Coreg] 12.5 mg PO BID #60 tablet Losartan [Cozaar] 100 mg PO QDAY #30 tablet hydrALAZINE 100 mg PO TID #90 Levothyroxine 100 mg PO ONCE #30 NIFEdipine XL [Procardia Xl] 90 mg PO QDAY #30 tablet
--- NOTE | 2018-12-03 09:09 | Progress Note ---
Assessment and Plan Pulmonary edema ESRD on dialysis Hypertension Diabetes AND/DNR status Dilated Cardiomyopathy Echocardiogram done 11/2018 reports a dilated cardiomyopathy, moderate to severe left ventricular systolic dysfunction, ejection fraction 30-35%. No ischemia by MPI 12/2017. Recommendations: Dialysis for fluid management. Continue medical therapy for systolic left ventricular dysfunction. Otherwise, conservative cardiac management. Subjective Date of service: 12/03/18 Interval history: Patient is resting in bed comfortably. No cardiac events overnight. For plan discharge home today. Family member is at the bedside. Objective Vital Signs Temp Pulse Resp BP Pulse Ox 12/03/18 07:11 98.0 F 18 171/55 12/03/18 05:08 167/68 12/03/18 04:49 98.4 F 55 L 18 167/68 99 12/03/18 00:00 56 L 12/02/18 23:38 97.6 F 51 L 16 137/49 99 12/02/18 19:40 98.4 F 54 L 16 155/52 97 12/02/18 18:00 56 L 150/55 97 12/02/18 11:57 97.4 F L 55 L 16 185/73 100 12/02/18 10:00 52 L - Physical Examination General: No Apparent Distress HEENT: Positive: PERRL Neck: Positive: trachea midline Cardiac: Positive: Reg Rate and Rhythm Lungs: Positive: Decreased Breath Sounds Neuro: Positive: Grossly Intact Abdomen: Positive: Soft Extremities: Absent: edema
--- NOTE | 2018-12-03 09:11 | Progress Note ---
Assessment and Plan 1. ESRD: Continue hemodialysis three times a week, TTS schedule. 2. Acute respiratory distress: Likely due to volume overload, improved. 3. Anemia: Epogen as needed. 4. Elevated Troponin: Followed by Cards. 5. Uncontrolled HTN: Monitor BP. 6. DM-2. 7. Hypothyroid. 8. Advanced age. Examination: General appearance: well-developed, appears stated age, no distress EENT: ATNC, MARY ANN Neck: supple Respiratory: ctab Cardiology: regular, S1S2, no murmur Gastrointestinal: normoactive bowel sounds, no tenderness, no distended Integumentary: no rash, warm and dry Neurologic: able to move extremities Musculoskeletal: no edema Hemodialysis access: L arm AVF Subjective Date of service: 12/03/18 Interval history: Patient was seen and examined at the bedside, while on HD. Objective - Vital Signs Vital signs: Vital Signs - 12hr 12/02/18 12/03/18 12/03/18 23:38 00:00 04:49 Temperature 97.6 F 98.4 F Pulse Rate 51 L 56 L 55 L Respiratory 16 18 Rate Blood Pressure 137/49 167/68 O2 Sat by Pulse 99 99 Oximetry 12/03/18 12/03/18 05:08 07:11 Temperature 98.0 F Pulse Rate Respiratory 18 Rate Blood Pressure 167/68 171/55 O2 Sat by Pulse Oximetry - Lab 11/29/18 05:28 11/28/18 07:59 Most recent lab results Calcium 8.5 mg/dL (8.4-10.2) 11/28/18 07:59 Magnesium 2.70 mg/dL (1.7-2.3) H 11/27/18 14:34 Medications & Allergies - Medications Allergies/Adverse Reactions: Allergies No Known Allergies Allergy (Unverified 11/27/18 12:08) Home Medications: Home Medications Medication Instructions Recorded Confirmed Last Taken Type Calcium Acetate 667 mg PO TID 12/01/18 12/01/18 Unknown History cloNIDine [Catapres] 0.3 tab PO BID 12/01/18 12/01/18 12/01/18 16:31 History Carvedilol [Coreg] 12.5 mg PO BID #60 tablet 12/03/18 Unknown Rx Levothyroxine 100 mg PO ONCE #30 12/03/18 Unknown Rx Losartan [Cozaar] 100 mg PO QDAY #30 tablet 12/03/18 Unknown Rx NIFEdipine XL [Procardia Xl] 90 mg PO QDAY #30 tablet 12/03/18 Unknown Rx hydrALAZINE 100 mg PO TID #90 12/03/18 Unknown Rx Active Medications: Generic Name Dose Route Start Last Admin Trade Name Freq PRN Reason Stop Dose Admin Acetaminophen 650 mg 11/27/18 21:08 11/29/18 10:25 Tylenol PO 650 mg Q4H PRN Administration Pain MILD(1-3)/Fever >100.5/RODRIGES Carvedilol 12.5 mg 11/28/18 10:00 12/02/18 21:21 Coreg PO 12.5 mg BID HIRAM Administration Epoetin Michael 10,000 unit 11/30/18 22:03 12/01/18 12:38 Procrit SUB-Q 10,000 unit JULIANE PRN Administration hemodialysis Heparin Sodium (Porcine) 5,000 unit 11/29/18 10:00 12/02/18 21:20 Heparin SUB-Q 5,000 unit Q12HR HIRAM Administration Hydralazine HCl 10 mg 11/27/18 22:32 12/02/18 05:44 Apresoline IV 10 mg Q4HR PRN Administration Blood Pressure Hydralazine HCl 75 mg 12/02/18 14:00 12/03/18 05:08 Apresoline PO 75 mg Q8HR HIRAM Administration Hydromorphone HCl 0.5 mg 11/27/18 21:08 Dilaudid IV Q3H PRN Pain , Severe (7-10) Sodium Chloride 100 mls @ 999 mls/hr 11/30/18 22:03 Nacl 0.9% IV JULIANE PRN Hypotension Losartan Potassium 100 mg 11/28/18 10:00 12/02/18 10:02 Cozaar PO 100 mg QDAY HIRAM Administration Metoclopramide HCl 5 mg 11/27/18 21:14 Reglan IV Q6H PRN Nausea And Vomiting Nifedipine 90 mg 12/03/18 10:00 Procardia Xl PO QDAY HIRAM Ondansetron HCl 4 mg 11/27/18 21:08 Zofran IV Q8H PRN Nausea And Vomiting Polyethylene Glycol 17 gm 12/02/18 11:30 12/02/18 12:14 Miralax 3350 PO 17 gm QDAY PRN Administration Constipation Sodium Chloride 10 ml 11/27/18 22:00 12/02/18 21:21 Sodium Chloride Flush Syringe 10 Ml IV 10 ml BID HIRAM Administration Sodium Chloride 10 ml 11/27/18 21:08 Sodium Chloride Flush Syringe 10 Ml IV PRN PRN LINE FLUSH
[2018-12-03] MEDS ORDERED: NIFEdipine XL 90 MG TAB PO SCH (10:00)
[2018-12-03] MEDS ORDERED: SODIUM CHLORIDE*PRIMING MACHINE ONLY FOR DIALYSIS MC ONE (11:30)
[2018-12-03] MEDS: EPOETIN ALFA 10,000 UNIT/1 ML INJ SUB-Q PRN (11:35)
[2018-12-03] MEDS: carvediloL 12.5 MG TAB PO SCH (12:48)
[2018-12-03] MEDS: LOSARTAN 50 MG TAB PO SCH (12:48)
[2018-12-03] MEDS: HEPARIN 5,000 UNIT/1 ML VIAL SUB-Q SCH (12:49)
[2018-12-03 13:53] VITALS: BP 165/55
== END 2018-12-03 15:10 | disposition home or self-care (01) | DRG 291 ==
LOC: ED 12:05 → 4A 18:57
PROVIDERS: ADMIT Internal Medicine; ATTEND Hospitalist
PROC: 5A1D70Z Performance of Urinary Filtration, Intermittent, Less than 6 Hours Per Day (ICD-10-PCS; principal; 2018-11-27)
PROC: 5A1D70Z Performance of Urinary Filtration, Intermittent, Less than 6 Hours Per Day (ICD-10-PCS; 2018-11-28)
PROC: 5A1D70Z Performance of Urinary Filtration, Intermittent, Less than 6 Hours Per Day (ICD-10-PCS; 2018-12-01)
PROC: 5A1D70Z Performance of Urinary Filtration, Intermittent, Less than 6 Hours Per Day (ICD-10-PCS; 2018-12-03)
DX: I13.2 Hypertensive heart and chronic kidney disease with heart failure and with stage 5 chronic kidney disease, or end stage renal disease (principal); N18.6 End stage renal disease; I50.43 Acute on chronic combined systolic (congestive) and diastolic (congestive) heart failure; I16.1 Hypertensive emergency; I42.0 Dilated cardiomyopathy; R06.03 Acute respiratory distress; E11.22 Type 2 diabetes mellitus with diabetic chronic kidney disease; D64.9 Anemia, unspecified; E03.9 Hypothyroidism, unspecified; Z66 Do not resuscitate; Z82.49 Family history of ischemic heart disease and other diseases of the circulatory system; Z99.2 Dependence on renal dialysis
CPT/HCPCS: 36415; 71045; 80053; 80061; 80074; 82962; 83036; 83735; 83880; 84484; 85014; 85018; 85025; 85049; 85520; 85610; 85730; 93005; 93010; 93306; 96374; 96375; 99292; G0378; A4649; J0360; J0885; J1644; J1940; J2270; J2405; J7030